=== PATIENT | male | born 1940 | race Caucasian/White ===

== ENCOUNTER → 2016-04-17 | Outpatient (CLI) | payer MEDICARE, OTHER ==
[2016-04-17 13:55] LABS: BUN/Creatinine Ratio 20.3; Calcium 10.1 mg/dL (8.5-10.1); Potassium 5.1 mmol/L (3.5-5.1)
== END | disposition home or self-care (01) ==
LOC: LAB 09:39
PROVIDERS: ATTEND Internal Medicine Cardiovascular Disease
DX: I10 Essential (primary) hypertension (principal); E11.9 Type 2 diabetes mellitus without complications
CPT/HCPCS: 36415; 80048; 83036

== ENCOUNTER → 2016-04-24 | Outpatient (CLI) | payer MEDICARE, OTHER | END | disposition home or self-care (01) | LOC: Rad HDHVI 11:06 | PROVIDERS: ATTEND Internal Medicine Cardiovascular Disease | DX: I10 Essential (primary) hypertension (principal); E78.5 Hyperlipidemia, unspecified; I25.10 Atherosclerotic heart disease of native coronary artery without angina pectoris | CPT/HCPCS: 93306 ==

== ENCOUNTER → 2016-06-22 | Outpatient (CLI) | payer MEDICARE, OTHER ==
[~2016-06-22] VITALS: Ht 170.2 cm; Wt 72.6 kg
== END | disposition home or self-care (01) ==
LOC: Rad HDHVI 09:03
PROVIDERS: ATTEND Internal Medicine Cardiovascular Disease
DX: R07.89 Other chest pain (principal); I10 Essential (primary) hypertension; I49.5 Sick sinus syndrome; I25.10 Atherosclerotic heart disease of native coronary artery without angina pectoris; E78.00 Pure hypercholesterolemia, unspecified; Z95.0 Presence of cardiac pacemaker
CPT/HCPCS: 78452; 93017; 96374; A9500

== ENCOUNTER → 2016-06-25 | Outpatient (CLI) | payer MEDICARE, OTHER | END | disposition home or self-care (01) | LOC: Rad HDHVI 09:28 | PROVIDERS: ATTEND Internal Medicine Cardiovascular Disease | DX: J32.9 Chronic sinusitis, unspecified (principal) | CPT/HCPCS: 70220 ==

== ENCOUNTER → 2016-09-17 | Outpatient (CLI) | payer MEDICARE, OTHER ==
[2016-09-17 09:15] VITALS: BP 96/50
[2016-09-17 09:40] VITALS: BP 95/50
[2016-09-17 12:47] LABS: Basophils # (auto) 0 uL; Basophils % (auto) 0.4 % (0.0-2.0); Eosinophils # (auto) 0.1 uL; Eosinophils % (auto) 1.6 % (0.0-7.0); Hematocrit 37.5 % (41.0-53.0); Hemoglobin 12.7 g/dL (13.5-17.5); Lymphocytes # (auto) 2.1 uL; Lymphocytes % (auto) 22.9 % (10.0-50.0); Mean Corpuscular Hemoglobin 29.7 pg (28.0-32.0); Mean Corpuscular Hgb Conc. 33.8 g/dL (32.0-36.0); Mean Corpuscular Volume 87.8 fL (80.0-100.0); Mean Platelet Volume 6.9 fL (7.4-10.4); Monocytes # (auto) 0.5 uL; Monocytes % (auto) 4.9 % (0.0-12.0); Neutrophils # (auto) 6.4 uL; Neutrophils % (auto) 70.2 % (37.0-80.0); Platelet Count (auto) 246 10^3/uL (140-450); White Blood Cell 9.2 10^3/uL (4.4-10.8)
[2016-09-17 12:53] LABS: INR 1.01 (0.9-1.15); Partial Thromboplastin Time 27.3 sec (22.64-33.71)
[2016-09-17 13:21] LABS: BUN/Creatinine Ratio 21.7; Calcium 9.1 mg/dL (8.5-10.1)
== END | disposition home or self-care (01) ==
LOC: Rad HDHVI 09:01
PROVIDERS: ATTEND Internal Medicine Cardiovascular Disease
DX: Z01.812 Encounter for preprocedural laboratory examination (principal); M47.814 Spondylosis without myelopathy or radiculopathy, thoracic region; I11.0 Hypertensive heart disease with heart failure; I50.9 Heart failure, unspecified; I25.10 Atherosclerotic heart disease of native coronary artery without angina pectoris; E78.00 Pure hypercholesterolemia, unspecified; D64.9 Anemia, unspecified; R79.1 Abnormal coagulation profile; R07.9 Chest pain, unspecified
CPT/HCPCS: 36415; 71020; 80048; 85025; 85610; 85730; 93005; G0463

== ENCOUNTER → 2016-09-28 | Outpatient (CLI) | payer MEDICARE, OTHER ==
[~2016-09-28] MED LIST: CANA300T PO; CHOL20009 PO; CLOP75TA28 PO; GLIM2TAB33 PO; LINA5TAB PO; LIRA18IN2 SUBCUT; OMEG600C2 PO; PREG75CA PO; ROSU20TA14 PO; SODIUM CHLORIDE 0.9% 500 ML IV ONE; [UNRECOGNIZED DRUG - CODE] PO
[2016-09-28 10:35] VITALS: BP 82/46
[2016-09-28 11:30] VITALS: BP 106/57
[2016-09-28 11:45] VITALS: BP 103/57
[2016-09-28 12:30] VITALS: BP 112/58
[2016-09-28 13:05] VITALS: BP 107/60
== END | disposition home or self-care (01) ==
LOC: CHF HDHVI 10:14
PROVIDERS: ATTEND Internal Medicine Cardiovascular Disease
DX: E86.0 Dehydration (principal); R11.2 Nausea with vomiting, unspecified; Z95.828 Presence of other vascular implants and grafts
CPT/HCPCS: 96360; 96361; G0463

== ENCOUNTER → 2016-10-31 | Outpatient (CLI) | payer MEDICARE, OTHER ==
[~2016-10-31] MED LIST changes: -SODIUM CHLORIDE 0.9% 500 ML IV ONE
[2016-10-31 12:58] LABS: Anion Gap 9 (5-15); BUN/Creatinine Ratio 36.4; Blood Urea Nitrogen 56 mg/dL (7-18); Calcium 9.7 mg/dL (8.5-10.1); Carbon Dioxide 20 mmol/L (21-32); Chloride 108 mmol/L (98-107); Cholesterol 130 mg/dL (< 200); GFR African American 56 mL/min; GFR Non-African American 47 mL/min; Glucose 187 mg/dL (74-106); HDL Cholesterol 31 mg/dL (40-59); Magnesium 3.1 mg/dL (1.6-2.6); Sodium 137 mmol/L (136-145); Triglycerides 451 mg/dL (< 150)
[2016-10-31 15:29] LABS: Potassium 5.8 mmol/L (3.5-5.1)
== END | disposition home or self-care (01) ==
LOC: LAB 09:59
PROVIDERS: ATTEND Internal Medicine Cardiovascular Disease
DX: E78.00 Pure hypercholesterolemia, unspecified (principal); I10 Essential (primary) hypertension; E11.9 Type 2 diabetes mellitus without complications; E83.42 Hypomagnesemia
CPT/HCPCS: 36415; 80048; 80061; 83036; 83735

== ENCOUNTER → 2016-11-02 | Outpatient (CLI) | payer MEDICARE, OTHER ==
[~2016-11-02] MED LIST changes: +SODIUM POLYSTYRENE SULF 15GM/60ML SUSP ONE; +SODIUM POLYSTYRENE SULF 15GM/60ML SUSP PO ONE
[2016-11-02 09:40] VITALS: BP 115/58
[2016-11-02 10:10] VITALS: BP 111/55
[2016-11-02 10:35] LABS: BUN/Creatinine Ratio 32.5; Calcium 9.2 mg/dL (8.5-10.1); Magnesium 2.5 mg/dL (1.6-2.6); Potassium 4.5 mmol/L (3.5-5.1)
== END | disposition home or self-care (01) ==
LOC: CHF HDHVI 09:45
PROVIDERS: ATTEND Internal Medicine Cardiovascular Disease
DX: I73.9 Peripheral vascular disease, unspecified (principal); I10 Essential (primary) hypertension; E11.9 Type 2 diabetes mellitus without complications; E87.5 Hyperkalemia; E78.5 Hyperlipidemia, unspecified; E83.41 Hypermagnesemia
CPT/HCPCS: 36415; 80048; 83735; G0463

== ENCOUNTER → 2016-11-05 | Outpatient (CLI) | payer MEDICARE, OTHER ==
[~2016-11-05] MED LIST changes: +CYANOCOBALAMIN (B-12) 1000 MCG/1 ML VIAL IM ONE; +CYANOCOBALAMIN (B-12) 1000 MCG/1 ML VIAL ONE; -SODIUM POLYSTYRENE SULF 15GM/60ML SUSP ONE; -SODIUM POLYSTYRENE SULF 15GM/60ML SUSP PO ONE
[2016-11-05 12:00] VITALS: BP 138/73
[2016-11-05 12:30] VITALS: BP 131/79
[2016-11-05 15:16] LABS: Magnesium 2.4 mg/dL (1.6-2.6); Potassium 4.6 mmol/L (3.5-5.1)
== END | disposition home or self-care (01) ==
LOC: CHF HDHVI 11:37
PROVIDERS: ATTEND Internal Medicine Cardiovascular Disease
DX: I25.10 Atherosclerotic heart disease of native coronary artery without angina pectoris (principal); R94.4 Abnormal results of kidney function studies; E87.6 Hypokalemia; E83.42 Hypomagnesemia; R53.83 Other fatigue
CPT/HCPCS: 36415; 82565; 83735; 84132; 84520; J3420

== ENCOUNTER → 2016-11-09 | Outpatient (CLI) | payer MEDICARE, OTHER ==
[~2016-11-09] MED LIST changes: -CYANOCOBALAMIN (B-12) 1000 MCG/1 ML VIAL IM ONE; -CYANOCOBALAMIN (B-12) 1000 MCG/1 ML VIAL ONE
[2016-11-09 13:02] LABS: Magnesium 2.5 mg/dL (1.6-2.6); Potassium 4.5 mmol/L (3.5-5.1)
== END | disposition home or self-care (01) ==
LOC: LAB 11:10
PROVIDERS: ATTEND Internal Medicine Cardiovascular Disease
DX: I10 Essential (primary) hypertension (principal); E83.42 Hypomagnesemia
CPT/HCPCS: 36415; 80048; 83735

== ENCOUNTER → 2017-01-01 | Outpatient (CLI) | payer MEDICARE, OTHER ==
[~2017-01-01] MED LIST changes: +METF-370 PO
[2017-01-01 09:00] VITALS: BP 99/55
[2017-01-01 12:23] LABS: Basophils # (auto) 0.1 uL; Basophils % (auto) 1.2 % (0.0-2.0); Eosinophils # (auto) 0.1 uL; Hematocrit 41.5 % (41.0-53.0); Hemoglobin 13.9 g/dL (13.5-17.5); Lymphocytes # (auto) 2.4 uL; Lymphocytes % (auto) 35.4 % (10.0-50.0); Mean Corpuscular Hemoglobin 29.4 pg (28.0-32.0); Mean Corpuscular Hgb Conc. 33.6 g/dL (32.0-36.0); Mean Corpuscular Volume 87.5 fL (80.0-100.0); Mean Platelet Volume 6.7 fL (6.9-10.8); Monocytes # (auto) 0.7 uL; Monocytes % (auto) 10.8 % (0.0-12.0); Neutrophils # (auto) 3.4 uL; Neutrophils % (auto) 50.6 % (37.0-80.0); Nucleated Red Blood Cells % 0.1 %; Platelet Count (auto) 200 10^3/uL (140-450); Red Cell Distribution Width 14.5 % (11.8-14.3); White Blood Cell 6.6 10^3/uL (4.4-10.8)
[2017-01-01 12:35] LABS: Prothrombin Time 10.9 sec (9.37-12.3)
[2017-01-01 12:38] LABS: BUN/Creatinine Ratio 25.2; Calcium 9.3 mg/dL (8.5-10.1); Potassium 4.2 mmol/L (3.5-5.1)
== END | disposition home or self-care (01) ==
LOC: Rad HDHVI 09:04
PROVIDERS: ATTEND Internal Medicine Cardiovascular Disease
DX: Z01.818 Encounter for other preprocedural examination (principal); I70.0 Atherosclerosis of aorta; I51.7 Cardiomegaly; I10 Essential (primary) hypertension; D64.9 Anemia, unspecified; R79.1 Abnormal coagulation profile
CPT/HCPCS: 36415; 71020; 80048; 85025; 85610; 85730; 93005; G0463

== ENCOUNTER 2017-01-03 09:09 | Inpatient (IN) | payer MEDICARE, OTHER ==
[~2017-01-03] VITALS: Ht 170.2 cm; Wt 76.0 kg
[2017-01-03] MEDS ORDERED: ceFAZolin 1GM/50ML D5W 50 ML IV ONE ×2 (09:23→09:30)
[2017-01-03] MEDS ORDERED: VANCOMYCIN 1GM/250ML D5W 250 ML IV ONE ×2 (09:23→09:30)
[2017-01-03] MEDS ORDERED: VANCOMYCIN HCL 1000 MG VL ONE (09:23)
[2017-01-03] MEDS ORDERED: VANCOMYCIN HCL 1000 MG VL IR ONE (09:30)
[2017-01-03] MEDS ORDERED: LIDOCAINE 2%HCL (LOCAL ANESTH.) INJ 20ML MDV ONE (10:21)
[2017-01-03] MEDS ORDERED: MIDAZOLAM HCL 1MG/1ML-2 ML VIAL ONE (10:27)
[2017-01-03] MEDS ORDERED: fentaNYL CITRATE 100 MCG/2 ML VL ONE (10:27)
[2017-01-03] MEDS ORDERED: NITROGLYCERIN 0.4 MG SL TAB SL PRN (12:15)
[2017-01-03] MEDS ORDERED: ACETAMINOPHEN 325 MG TAB PO PRN (12:15)
[2017-01-03] MEDS ORDERED: HYDROcodone-ACET 5/325MG TAB PO PRN (12:15)
[2017-01-03] MEDS ORDERED: MORPHINE SULF INJ 2 MG/ML SYRINGE 1ML IV PRN (12:15)
[2017-01-03 13:20] VITALS: BP 128/70
[2017-01-03] MEDS: ACCU-CHEK COMFORT CURVE STRIP VI SCH ×2 (16:54→22:14)
[2017-01-03 22:00] VITALS: BP 122/58
[2017-01-03] MEDS ORDERED: ATORVASTATIN 20 MG TAB PO SCH (22:00)
[2017-01-03] MEDS: VANCOMYCIN 1GM/250ML D5W 250 ML IV SCH (22:20)
[2017-01-03] MEDS: metFORMIN HYDROCHLORIDE 500 MG TAB PO SCH (22:21)
[2017-01-03] MEDS: PREGABALIN CAPSULE 75 MG CAP PO SCH (22:22)
[2017-01-04 05:00] VITALS: BP 127/55
[2017-01-04] MEDS: ACCU-CHEK COMFORT CURVE STRIP VI SCH ×2 (06:36→10:59)
[2017-01-04 07:30] VITALS: BP 109/59
[2017-01-04 08:00] VITALS: BP 109/59
[2017-01-04] MEDS: VANCOMYCIN 1GM/250ML D5W 250 ML IV SCH (09:51)
[2017-01-04] MEDS: PREGABALIN CAPSULE 75 MG CAP PO SCH (09:52)
[2017-01-04] MEDS: LOSARTAN POTASSIUM 50 MG TAB PO SCH ×3 (09:52→10:12)
[2017-01-04] MEDS: metFORMIN HYDROCHLORIDE 500 MG TAB PO SCH (09:52)
[2017-01-04] MEDS ORDERED: [UNRECOGNIZED DRUG - OTHER] PO SCH (10:00)
[2017-01-04] MEDS ORDERED: GLIMEPIRIDE 2 MG TAB PO SCH (10:00)
[2017-01-04 12:40] VITALS: BP 128/58
[2017-01-04 15:23] VITALS: BP 109/59
[2017-01-04 15:53] VITALS: BP 124/69
== END 2017-01-04 17:31 | disposition home or self-care (01) | DRG 244 ==
LOC: CATH 09:09 → TELE-E-ADS 09:10 → TELE-CENTR 16:34
PROVIDERS: ADMIT Internal Medicine Cardiovascular Disease; ATTEND Internal Medicine Cardiovascular Disease
PROC: 0JPT0PZ Removal of Cardiac Rhythm Related Device from Trunk Subcutaneous Tissue and Fascia, Open Approach (ICD-10-PCS; principal; 2017-01-03)
PROC: 0JH606Z Insertion of Pacemaker, Dual Chamber into Chest Subcutaneous Tissue and Fascia, Open Approach (ICD-10-PCS; 2017-01-03)
PROC: 02HK3JZ Insertion of Pacemaker Lead into Right Ventricle, Percutaneous Approach (ICD-10-PCS; 2017-01-03)
PROC: 02PA3MZ Removal of Cardiac Lead from Heart, Percutaneous Approach (ICD-10-PCS; 2017-01-03)
DX: I44.2 Atrioventricular block, complete (principal)
CPT/HCPCS: 33207; 33233; 33234; 36415; 71010; 71020; 80048; 82962; 85025; 85610; 85730; 93005; 99152; 99153; C1785; G0463; J0690; J2250

== ENCOUNTER → 2017-01-14 | Outpatient (CLI) | payer MEDICARE, OTHER ==
[2017-01-14 14:25] LABS: BUN/Creatinine Ratio 18.2; Potassium 4.1 mmol/L (3.5-5.1)
== END | disposition home or self-care (01) ==
LOC: LAB 09:04
PROVIDERS: ATTEND Internal Medicine Cardiovascular Disease
DX: I10 Essential (primary) hypertension (principal); E11.9 Type 2 diabetes mellitus without complications
CPT/HCPCS: 36415; 80048; 83036

== ENCOUNTER → 2017-01-22 | Outpatient (CLI) | payer MEDICARE, OTHER ==
[~2017-01-22] MED LIST changes: +VANCOMYCIN 1GM/250ML 250 ML IV ONE; +cefTRIAXone 1GM/50ML D5W 0 ML IV ONE; +cefTRIAXone 1GM/50ML D5W 50 ML IV ONE
[2017-01-22 16:14] VITALS: BP 122/69
== END | disposition home or self-care (01) ==
LOC: CHF HDHVI 09:56
PROVIDERS: ATTEND Internal Medicine Cardiovascular Disease
DX: I50.9 Heart failure, unspecified (principal)
CPT/HCPCS: 96365; 96366; G0463; J0696

== ENCOUNTER → 2017-01-23 | Outpatient (CLI) | payer MEDICARE, OTHER ==
[~2017-01-23] VITALS: Ht 30.5 cm; Wt 0.5 kg
[~2017-01-23] MED LIST changes: +ONDANSETRON HCL 4 MG/2 ML VIAL IV ONE; +ONDANSETRON HCL 4 MG/2 ML VIAL ONE; -cefTRIAXone 1GM/50ML D5W 0 ML IV ONE
[2017-01-23 13:46] VITALS: BP 94/63
[2017-01-23 13:46] LABS: BUN/Creatinine Ratio 26.2; Calcium 9.8 mg/dL (8.5-10.1); Magnesium 2.2 mg/dL (1.6-2.6); Potassium 4.2 mmol/L (3.5-5.1)
[2017-01-23 13:55] LABS: Basophils # (auto) 0.1 uL; Basophils % (auto) 0.7 % (0.0-2.0); Eosinophils # (auto) 0.2 uL; Eosinophils % (auto) 1.9 % (0.0-7.0); Hematocrit 39.7 % (41.0-53.0); Hemoglobin 13.3 g/dL (13.5-17.5); Lymphocytes # (auto) 1.5 uL; Lymphocytes % (auto) 16.7 % (10.0-50.0); Mean Corpuscular Hemoglobin 28.8 pg (28.0-32.0); Mean Corpuscular Hgb Conc. 33.5 g/dL (32.0-36.0); Mean Corpuscular Volume 85.8 fL (80.0-100.0); Mean Platelet Volume 6.7 fL (6.9-10.8); Monocytes # (auto) 0.8 uL; Monocytes % (auto) 8.5 % (0.0-12.0); Neutrophils # (auto) 6.5 uL; Neutrophils % (auto) 72.2 % (37.0-80.0); Nucleated Red Blood Cells % 0.1 %; Platelet Count (auto) 212 10^3/uL (140-450); Red Cell Distribution Width 14.1 % (11.8-14.3); White Blood Cell 9.1 10^3/uL (4.4-10.8)
[2017-01-23 14:13] LABS: INR 1.03 (0.9-1.15); Partial Thromboplastin Time 26.5 sec (22.64-33.71); Prothrombin Time 11.2 sec (9.37-12.3)
[2017-01-24 08:06] LABS: PSA Free 1.58 ng/mL; Prostate Specific Antigen 5.4 ng/mL (0.0-4.0)
== END | disposition home or self-care (01) ==
LOC: CHF HDHVI 10:15
PROVIDERS: ATTEND Internal Medicine Cardiovascular Disease
DX: I10 Essential (primary) hypertension (principal); E83.42 Hypomagnesemia; R97.20 Elevated prostate specific antigen [PSA]; D64.9 Anemia, unspecified
CPT/HCPCS: 36415; 80048; 83735; 84153; 84154; 85025; 85610; 85730; 96365; 96367; 96375; G0463; J0696; J2405

== ENCOUNTER → 2017-02-06 | Outpatient (CLI) | payer MEDICARE, OTHER ==
[~2017-02-06] MED LIST changes: -ONDANSETRON HCL 4 MG/2 ML VIAL IV ONE; -ONDANSETRON HCL 4 MG/2 ML VIAL ONE; -VANCOMYCIN 1GM/250ML 250 ML IV ONE; -cefTRIAXone 1GM/50ML D5W 50 ML IV ONE
== END | disposition home or self-care (01) ==
LOC: Rad HDHVI 15:01
PROVIDERS: ATTEND Internal Medicine Cardiovascular Disease
DX: I35.0 Nonrheumatic aortic (valve) stenosis (principal)
CPT/HCPCS: 93306

== ENCOUNTER → 2017-04-17 | Outpatient (CLI) | payer MEDICARE, OTHER ==
[2017-04-17 12:11] LABS: Basophils # (auto) 0.1 uL; Eosinophils # (auto) 0.2 uL; Hematocrit 42.8 % (41.0-53.0); Hemoglobin 14.1 g/dL (13.5-17.5); Lymphocytes # (auto) 2.6 uL; Lymphocytes % (auto) 32.7 % (10.0-50.0); Mean Corpuscular Hemoglobin 28.3 pg (28.0-32.0); Mean Corpuscular Hgb Conc. 32.8 g/dL (32.0-36.0); Mean Corpuscular Volume 86.1 fL (80.0-100.0); Monocytes # (auto) 0.8 uL; Monocytes % (auto) 10.4 % (0.0-12.0); Neutrophils # (auto) 4.2 uL; Neutrophils % (auto) 53.9 % (37.0-80.0); Platelet Count (auto) 206 10^3/uL (140-450); Red Blood Cells 4.97 10^6/uL (4.5-5.90); Red Cell Distribution Width 14.6 % (11.8-14.3); White Blood Cell 7.8 10^3/uL (4.4-10.8)
[2017-04-17 12:23] LABS: Urine Blood Negative /uL (Negative)
[2017-04-17 13:31] LABS: Alkaline Phosphatase 77 U/L (45-117); Anion Gap 12 (5-15); BUN/Creatinine Ratio 25.6; Blood Urea Nitrogen 34 mg/dL (7-18); Carbon Dioxide 21 mmol/L (21-32); Chloride 108 mmol/L (98-107); GFR African American 67 mL/min; GFR Non-African American 55 mL/min; Glucose 177 mg/dL (74-106); Potassium 4.4 mmol/L (3.5-5.1); Sodium 141 mmol/L (136-145)
[2017-04-17 13:32] LABS: Alanine Aminotransferase 26 U/L (16-61); Aspartate Aminotransferase 14 U/L (15-37); Bilirubin, Direct 0.1 mg/dL (0-0.2); Bilirubin, Total 0.5 mg/dL (0.2-1.0); Calcium 9.4 mg/dL (8.5-10.1); Cholesterol 133 mg/dL (< 200); HDL Cholesterol 35 mg/dL (40-59); Total Protein 7.7 g/dL (6.4-8.2); Triglycerides 470 mg/dL (< 150)
== END | disposition home or self-care (01) ==
LOC: LAB 10:26
PROVIDERS: ATTEND Internal Medicine Cardiovascular Disease
DX: E78.00 Pure hypercholesterolemia, unspecified (principal); D64.9 Anemia, unspecified; I10 Essential (primary) hypertension; E11.9 Type 2 diabetes mellitus without complications; E03.9 Hypothyroidism, unspecified; R97.20 Elevated prostate specific antigen [PSA]; R53.81 Other malaise; N39.0 Urinary tract infection, site not specified; K74.1 Hepatic sclerosis
CPT/HCPCS: 36415; 80048; 80061; 80076; 81003; 83036; 84153; 84403; 84443; 85025

== ENCOUNTER → 2017-04-18 | Outpatient (CLI) | payer MEDICARE, OTHER | END | disposition home or self-care (01) | LOC: LAB 15:25 | PROVIDERS: ATTEND Internal Medicine Cardiovascular Disease | DX: E55.9 Vitamin D deficiency, unspecified (principal); R97.20 Elevated prostate specific antigen [PSA] | CPT/HCPCS: 82306; 84154 ==

== ENCOUNTER → 2017-05-22 | Outpatient (CLI) | payer MEDICARE, OTHER ==
[~2017-05-22] MED LIST changes: +IOHEXOL 350 MG/ML 100ML IJ ONE; +SODIUM BICARBONATE 8.4 % INJ 50ML VIAL IV ONE
[2017-05-22 12:25] VITALS: BP 105/62
[2017-05-22] MEDS: SODIUM CHLORIDE 0.9% 1,000 ML IV SCH ×2 (12:30→12:45)
[2017-05-22 13:49] LABS: Basophils # (auto) 0.1 uL; Basophils % (auto) 1.2 % (0.0-2.0); Eosinophils # (auto) 0.1 uL; Eosinophils % (auto) 0.9 % (0.0-7.0); Hematocrit 34.6 % (41.0-53.0); Hemoglobin 11.5 g/dL (13.5-17.5); Lymphocytes # (auto) 1.8 uL; Lymphocytes % (auto) 26.6 % (10.0-50.0); Mean Corpuscular Hemoglobin 28.5 pg (28.0-32.0); Mean Corpuscular Hgb Conc. 33.3 g/dL (32.0-36.0); Mean Corpuscular Volume 85.7 fL (80.0-100.0); Monocytes # (auto) 0.6 uL; Monocytes % (auto) 8.5 % (0.0-12.0); Neutrophils # (auto) 4.2 uL; Neutrophils % (auto) 62.8 % (37.0-80.0); Platelet Count (auto) 189 10^3/uL (140-450); Red Blood Cells 4.03 10^6/uL (4.5-5.90); Red Cell Distribution Width 14.8 % (11.8-14.3); White Blood Cell 6.7 10^3/uL (4.4-10.8)
[2017-05-22 14:03] LABS: BUN/Creatinine Ratio 20.3; Calcium 8.9 mg/dL (8.5-10.1); Magnesium 2.1 mg/dL (1.6-2.6); Potassium 4.3 mmol/L (3.5-5.1)
[2017-05-22 15:15] VITALS: BP 129/66
== END | disposition home or self-care (01) ==
LOC: Rad HDHVI 12:19
PROVIDERS: ATTEND Internal Medicine Cardiovascular Disease
DX: R07.89 Other chest pain (principal); E83.42 Hypomagnesemia; D64.9 Anemia, unspecified; I10 Essential (primary) hypertension; N28.1 Cyst of kidney, acquired; E11.9 Type 2 diabetes mellitus without complications; M48.04 Spinal stenosis, thoracic region; I70.0 Atherosclerosis of aorta; D71 Functional disorders of polymorphonuclear neutrophils; Z95.0 Presence of cardiac pacemaker
CPT/HCPCS: 36415; 71260; 80048; 82565; 83735; 85025; 96365; 96366; 96375; G0463; Q9967

== ENCOUNTER → 2017-06-11 | Outpatient (CLI) | payer MEDICARE, OTHER ==
[~2017-06-11] MED LIST changes: -IOHEXOL 350 MG/ML 100ML IJ ONE; -SODIUM BICARBONATE 8.4 % INJ 50ML VIAL IV ONE
== END | disposition home or self-care (01) ==
LOC: LAB 09:37
PROVIDERS: ATTEND Internal Medicine Cardiovascular Disease
DX: C61 Malignant neoplasm of prostate (principal)
CPT/HCPCS: 84153; 84154

== ENCOUNTER 2017-08-26 16:14 | Inpatient (IN) | payer MEDICARE, OTHER ==
[~2017-08-26] VITALS: Ht 170.2 cm; Wt 88.7 kg
[~2017-08-26 16:14] MED LIST changes: -ASPI-231 PO; -INSLANTI SC; -INSLISPI SC; -KETOROLAC TROMETH 30 MG/ML 1ML VIAL IV ONE; -KETOROLAC TROMETH 60MG/2ML VIAL IM ONE; -VANCOMYCIN 1GM/250ML 250 ML IV ONE; -cefTRIAXone 1GM/10ml IVPUSH 10 ML IV ONE
[2017-08-26 17:54] VITALS: BP 122/65
[2017-08-26 18:10] VITALS: BP 123/54
[2017-08-26] MEDS ORDERED: MORPHINE SULFATE 4 MG/ML SYR/VIAL IV PRN (18:30)
[2017-08-26] MEDS ORDERED: NITROGLYCERIN 0.4 MG SL TAB SL PRN (18:30)
[2017-08-26] MEDS ORDERED: ASPI-231 PO (18:33)
[2017-08-26] MEDS ORDERED: INSLANTI SC (18:33)
[2017-08-26] MEDS ORDERED: INSLISPI SC (18:33)
[2017-08-26] MEDS ORDERED: VANCOMYCIN PER PHARMACY 0 MG IV SCH (18:45)
[2017-08-26] MEDS ORDERED: DEXTROSE (50%) 50ML SYRG IV PRN (19:00)
[2017-08-26] MEDS ORDERED: FUROSEMIDE 20 MG/2 ML VIAL IV ONE (20:00)
[2017-08-26] MEDS ORDERED: ONDANSETRON HCL 4 MG/2 ML VIAL ONE (22:24)
[2017-08-26] MEDS: InsuLIN REG 1unit/0.01ml Soln (100units/ml) SC SCH (22:29)
[2017-08-26] MEDS: ATORVASTATIN 20 MG TAB PO SCH (22:29)
[2017-08-26] MEDS: INSULIN LANTUS (GLARGINE) 1 /0.01ml (100units/ml) SC SCH (22:29)
[2017-08-26] MEDS: ONDANSETRON HCL 4 MG/2 ML VIAL IV PRN (22:30)
[2017-08-26] MEDS: ACCU-CHEK COMFORT CURVE STRIP VI SCH (22:30)
[2017-08-26] MEDS: HYDROcodone-ACET 10/325MG TAB PO PRN (22:30)
[2017-08-26 23:54] VITALS: BP 126/53
[2017-08-27] VITALS (11 sets, daily range): BP systolic 110–140; BP diastolic 42–77
[2017-08-27] MEDS: VANCOMYCIN 1GM/250ML 250 ML IV SCH ×2 (00:21→23:50)
[2017-08-27] MEDS ORDERED: InsuLIN REG 1unit/0.01ml Soln (100units/ml) IV ONE ×2 (02:20→02:30)
[2017-08-27 06:04] LABS: Basophils # (auto) 0 uL; Eosinophils # (auto) 0.1 uL; Monocytes # (auto) 0.1 uL; Neutrophils # (auto) 2.5 uL; Red Blood Cells 2.94 10^6/uL (4.5-5.90); White Blood Cell 5.7 10^3/uL (4.4-10.8)
[2017-08-27 06:06] LABS: Basophils % (auto) 0.2 % (0.0-2.0); Eosinophils % (auto) 1.4 % (0.0-7.0); Hemoglobin 8.2 g/dL (13.5-17.5); Mean Corpuscular Hemoglobin 27.8 pg (28.0-32.0); Mean Corpuscular Hgb Conc. 32.7 g/dL (32.0-36.0); Mean Corpuscular Volume 84.9 fL (80.0-100.0); Neutrophils % (auto) 44.4 % (37.0-80.0); Nucleated Red Blood Cells % 0.1 %; Platelet Count (auto) 104 10^3/uL (140-450)
[2017-08-27 06:14] LABS: Calcium 8.8 mg/dL (8.5-10.1); Potassium 3.9 mmol/L (3.5-5.1)
[2017-08-27] MEDS: InsuLIN REG 1unit/0.01ml Soln (100units/ml) SC SCH ×4 (06:27→23:22)
[2017-08-27] MEDS: ACCU-CHEK COMFORT CURVE STRIP VI SCH ×4 (06:29→23:21)
[2017-08-27] MEDS ORDERED: VANCOMYCIN 1GM/250ML 250 ML IV SCH (10:00)
[2017-08-27] MEDS ORDERED: ASPirin 81 mg TAB PO ONE (10:00)
[2017-08-27] MEDS: LOSARTAN POTASSIUM 50 MG TAB PO SCH (10:24)
[2017-08-27] MEDS: CLOPIDOGREL BISULFATE 75 MG TAB PO SCH (10:25)
[2017-08-27] MEDS: PREGABALIN CAPSULE 75 MG CAP PO SCH (10:26)
[2017-08-27] MEDS: cefTRIAXone 1GM/10ml IVPUSH 10 ML IV SCH (18:13)
[2017-08-27] MEDS: ATORVASTATIN 20 MG TAB PO SCH (23:20)
[2017-08-27] MEDS: HYDROcodone-ACET 10/325MG TAB PO PRN (23:20)
[2017-08-27] MEDS: INSULIN LANTUS (GLARGINE) 1 /0.01ml (100units/ml) SC SCH (23:21)
[2017-08-27] MEDS: ONDANSETRON HCL 4 MG/2 ML VIAL IV PRN (23:49)
[2017-08-28 00:37] VITALS: BP 135/62
[2017-08-28 05:53] VITALS: BP 127/90
[2017-08-28 06:33] LABS: Hematocrit 31.4 % (41.0-53.0); Hemoglobin 10.4 g/dL (13.5-17.5); Mean Corpuscular Hemoglobin 28.4 pg (28.0-32.0); Mean Corpuscular Hgb Conc. 33.2 g/dL (32.0-36.0); Mean Corpuscular Volume 85.6 fL (80.0-100.0); Platelet Count (auto) 85 10^3/uL (140-450); Red Blood Cells 3.66 10^6/uL (4.5-5.90); Red Cell Distribution Width 14.4 % (11.8-14.3); White Blood Cell 6.4 10^3/uL (4.4-10.8)
[2017-08-28] MEDS: InsuLIN REG 1unit/0.01ml Soln (100units/ml) SC SCH ×4 (06:34→21:59)
[2017-08-28] MEDS: ACCU-CHEK COMFORT CURVE STRIP VI SCH ×4 (06:34→21:59)
[2017-08-28 06:53] LABS: Band Neutrophils % (manual) 0; Basophils % (manual) 0 (0.0-2.0); Blast Cells 0; Eosinophils % (manual) 0 (0-7); Metamyelocytes % 0; Myelocytes % 0; Promyelocytes % 0; Reactive Lymphocytes 0
[2017-08-28 06:54] LABS: Potassium 4.3 mmol/L (3.5-5.1)
[2017-08-28 06:59] LABS: Albumin 2.6 g/dL (3.4-5.0); BUN/Creatinine Ratio 20.4; Calcium 8.9 mg/dL (8.5-10.1)
[2017-08-28 07:01] LABS: Bilirubin, Total 0.8 mg/dL (0.2-1.0); Total Protein 6.9 g/dL (6.4-8.2)
[2017-08-28] MEDS: HYDROcodone-ACET 10/325MG TAB PO PRN ×2 (08:01→21:58)
[2017-08-28] MEDS: ONDANSETRON HCL 4 MG/2 ML VIAL IV PRN ×2 (08:01→21:58)
[2017-08-28 09:00] VITALS: BP 143/63
[2017-08-28] MEDS: cefTRIAXone 1GM/10ml IVPUSH 10 ML IV SCH (09:25)
[2017-08-28] MEDS: PREGABALIN CAPSULE 75 MG CAP PO SCH (09:26)
[2017-08-28] MEDS: LOSARTAN POTASSIUM 50 MG TAB PO SCH (09:26)
[2017-08-28] MEDS: CLOPIDOGREL BISULFATE 75 MG TAB PO SCH (09:26)
[2017-08-28 13:52] LABS: Lymphocytes % (manual) 72 (10.0-50.0); Monocytes % (manual) 6 (0-12)
[2017-08-28 17:31] VITALS: BP 138/71
[2017-08-28 20:00] VITALS: BP 130/72
[2017-08-28] MEDS: ATORVASTATIN 20 MG TAB PO SCH (21:58)
[2017-08-28] MEDS: INSULIN LANTUS (GLARGINE) 1 /0.01ml (100units/ml) SC SCH (21:59)
[2017-08-28 22:00] VITALS: BP 130/72
[2017-08-28] MEDS: VANCOMYCIN 1,250 MG in D5W 5% 250 ML IV SCH (23:28)
[2017-08-29 05:00] VITALS: BP 127/66
[2017-08-29] MEDS: InsuLIN REG 1unit/0.01ml Soln (100units/ml) SC SCH ×4 (06:17→21:32)
[2017-08-29] MEDS: ACCU-CHEK COMFORT CURVE STRIP VI SCH ×4 (06:17→21:23)
[2017-08-29 09:00] VITALS: BP 122/68
[2017-08-29] MEDS: cefTRIAXone 1GM/10ml IVPUSH 10 ML IV SCH (09:02)
[2017-08-29] MEDS: CLOPIDOGREL BISULFATE 75 MG TAB PO SCH (09:03)
[2017-08-29] MEDS: PREGABALIN CAPSULE 75 MG CAP PO SCH (09:03)
[2017-08-29] MEDS: LOSARTAN POTASSIUM 50 MG TAB PO SCH (09:03)
[2017-08-29 13:00] VITALS: BP 130/68
[2017-08-29] MEDS: HYDROcodone-ACET 10/325MG TAB PO PRN (16:27)
[2017-08-29] MEDS: ONDANSETRON HCL 4 MG/2 ML VIAL IV PRN (16:27)
[2017-08-29 17:24] VITALS: BP 122/62
[2017-08-29 20:00] VITALS: BP 121/55
[2017-08-29] MEDS: ATORVASTATIN 20 MG TAB PO SCH (21:22)
[2017-08-29] MEDS: INSULIN LANTUS (GLARGINE) 1 /0.01ml (100units/ml) SC SCH (21:32)
[2017-08-29 22:11] VITALS: BP 121/55
[2017-08-29] MEDS: VANCOMYCIN 1,250 MG in D5W 5% 250 ML IV SCH (23:26)
[2017-08-30] MEDS: ONDANSETRON HCL 4 MG/2 ML VIAL IV PRN ×3 (00:46→21:57)
[2017-08-30] MEDS: HYDROcodone-ACET 10/325MG TAB PO PRN ×3 (01:34→22:34)
[2017-08-30 05:07] VITALS: BP 123/60
[2017-08-30] MEDS: InsuLIN REG 1unit/0.01ml Soln (100units/ml) SC SCH ×4 (06:18→21:56)
[2017-08-30] MEDS: ACCU-CHEK COMFORT CURVE STRIP VI SCH ×4 (06:18→21:56)
[2017-08-30 07:31] VITALS: BP 126/74
[2017-08-30] MEDS: cefTRIAXone 1GM/10ml IVPUSH 10 ML IV SCH (09:27)
[2017-08-30] MEDS: PREGABALIN CAPSULE 75 MG CAP PO SCH (09:28)
[2017-08-30] MEDS: CLOPIDOGREL BISULFATE 75 MG TAB PO SCH (09:28)
[2017-08-30] MEDS: LOSARTAN POTASSIUM 50 MG TAB PO SCH (09:28)
[2017-08-30] MEDS: VANCOMYCIN 1,500 MG in D5W 5% 250 ML IV SCH (11:00)
[2017-08-30 11:46] VITALS: BP 146/74
[2017-08-30 14:50] LABS: Albumin 2.4 g/dL (3.4-5.0); BUN/Creatinine Ratio 21.1; Calcium 8.9 mg/dL (8.5-10.1); Potassium 5.1 mmol/L (3.5-5.1)
[2017-08-30 15:00] LABS: Bilirubin, Total 0.5 mg/dL (0.2-1.0); Total Protein 6.1 g/dL (6.4-8.2)
[2017-08-30 16:32] VITALS: BP 106/60
[2017-08-30 20:21] VITALS: BP 108/56
[2017-08-30 21:56] VITALS: BP 108/56
[2017-08-30] MEDS: INSULIN LANTUS (GLARGINE) 1 /0.01ml (100units/ml) SC SCH (21:56)
[2017-08-30] MEDS: ATORVASTATIN 20 MG TAB PO SCH (21:57)
[2017-08-31] VITALS (7 sets, daily range): BP systolic 104–139; BP diastolic 54–71
[2017-08-31] MEDS: ACCU-CHEK COMFORT CURVE STRIP VI SCH ×4 (07:00→21:40)
[2017-08-31] MEDS: InsuLIN REG 1unit/0.01ml Soln (100units/ml) SC SCH ×4 (07:00→21:42)
[2017-08-31 07:30] LABS: Albumin 2.6 g/dL (3.4-5.0); Potassium 4.7 mmol/L (3.5-5.1)
[2017-08-31 07:45] LABS: Bilirubin, Total 0.3 mg/dL (0.2-1.0); Total Protein 6.5 g/dL (6.4-8.2)
[2017-08-31 08:00] LABS: BUN/Creatinine Ratio 26.2
[2017-08-31] MEDS: ONDANSETRON HCL 4 MG/2 ML VIAL IV PRN ×2 (09:12→23:05)
[2017-08-31] MEDS: cefTRIAXone 1GM/10ml IVPUSH 10 ML IV SCH (09:12)
[2017-08-31] MEDS: PREGABALIN CAPSULE 75 MG CAP PO SCH (09:13)
[2017-08-31] MEDS: LOSARTAN POTASSIUM 50 MG TAB PO SCH (09:14)
[2017-08-31] MEDS: CLOPIDOGREL BISULFATE 75 MG TAB PO SCH (09:14)
[2017-08-31] MEDS: HYDROcodone-ACET 10/325MG TAB PO PRN ×2 (10:19→23:30)
[2017-08-31] MEDS: VANCOMYCIN 1,500 MG in D5W 5% 250 ML IV SCH (11:32)
[2017-08-31 13:36] LABS: Hematocrit 33.1 % (41.0-53.0); Hemoglobin 10.6 g/dL (13.5-17.5); Mean Corpuscular Hemoglobin 27.6 pg (28.0-32.0); Mean Corpuscular Hgb Conc. 32.2 g/dL (32.0-36.0); Mean Corpuscular Volume 85.7 fL (80.0-100.0); Platelet Count (auto) 132 10^3/uL (140-450); Red Blood Cells 3.86 10^6/uL (4.5-5.90); Red Cell Distribution Width 14.6 % (11.8-14.3); White Blood Cell 6.7 10^3/uL (4.4-10.8)
[2017-08-31 13:43] LABS: BUN/Creatinine Ratio 26.3; Potassium 4.4 mmol/L (3.5-5.1)
[2017-08-31 13:44] LABS: Calcium 8.6 mg/dL (8.5-10.1)
[2017-08-31 13:46] LABS: Band Neutrophils % (manual) 0; Basophils % (manual) 0 (0.0-2.0); Blast Cells 0; Eosinophils % (manual) 0 (0-7); Metamyelocytes % 0; Myelocytes % 0; Promyelocytes % 0; Reactive Lymphocytes 0
[2017-08-31 14:06] LABS: Lymphocytes % (manual) 73 (10.0-50.0); Monocytes % (manual) 6 (0-12)
[2017-08-31] MEDS: ATORVASTATIN 20 MG TAB PO SCH (21:42)
[2017-08-31] MEDS: INSULIN LANTUS (GLARGINE) 1 /0.01ml (100units/ml) SC SCH (21:42)
[2017-09-01 05:06] VITALS: BP 117/57
[2017-09-01] MEDS: ACCU-CHEK COMFORT CURVE STRIP VI SCH ×4 (06:50→21:25)
[2017-09-01] MEDS: InsuLIN REG 1unit/0.01ml Soln (100units/ml) SC SCH ×4 (06:58→21:26)
[2017-09-01 08:20] VITALS: BP 135/67
[2017-09-01] MEDS: CLOPIDOGREL BISULFATE 75 MG TAB PO SCH (08:55)
[2017-09-01] MEDS: LOSARTAN POTASSIUM 50 MG TAB PO SCH (08:55)
[2017-09-01] MEDS: PREGABALIN CAPSULE 75 MG CAP PO SCH (08:56)
[2017-09-01] MEDS: cefTRIAXone 1GM/10ml IVPUSH 10 ML IV SCH (08:57)
[2017-09-01 09:00] VITALS: BP 135/67
[2017-09-01] MEDS: ONDANSETRON HCL 4 MG/2 ML VIAL IV PRN ×2 (09:54→23:04)
[2017-09-01] MEDS: HYDROcodone-ACET 10/325MG TAB PO PRN ×2 (10:31→23:43)
[2017-09-01] MEDS: VANCOMYCIN 1,500 MG in D5W 5% 250 ML IV SCH (10:31)
[2017-09-01 13:00] VITALS: BP 137/63
[2017-09-01 17:00] VITALS: BP 101/56
[2017-09-01] MEDS: ATORVASTATIN 20 MG TAB PO SCH (21:22)
[2017-09-01] MEDS: INSULIN LANTUS (GLARGINE) 1 /0.01ml (100units/ml) SC SCH (21:25)
[2017-09-01 22:00] VITALS: BP 119/66
[2017-09-02 05:00] VITALS: BP 108/57
[2017-09-02 05:55] LABS: Hematocrit 32.6 % (41.0-53.0); Hemoglobin 10.8 g/dL (13.5-17.5); Mean Corpuscular Hemoglobin 28.5 pg (28.0-32.0); Mean Corpuscular Hgb Conc. 33.1 g/dL (32.0-36.0); Platelet Count (auto) 273 10^3/uL (140-450); Red Blood Cells 3.79 10^6/uL (4.5-5.90); Red Cell Distribution Width 14.3 % (11.8-14.3); White Blood Cell 7.7 10^3/uL (4.4-10.8)
[2017-09-02 06:06] LABS: Band Neutrophils % (manual) 0; Blast Cells 0; Metamyelocytes % 0; Myelocytes % 0; Promyelocytes % 0; Reactive Lymphocytes 0
[2017-09-02 06:09] LABS: Calcium 9.1 mg/dL (8.5-10.1); Potassium 4.9 mmol/L (3.5-5.1)
[2017-09-02] MEDS: InsuLIN REG 1unit/0.01ml Soln (100units/ml) SC SCH ×4 (06:15→21:50)
[2017-09-02] MEDS: ACCU-CHEK COMFORT CURVE STRIP VI SCH ×4 (06:15→21:50)
[2017-09-02 06:40] LABS: Basophils % (manual) 1 (0.0-2.0); Eosinophils % (manual) 3 (0-7); Lymphocytes % (manual) 62 (10.0-50.0); Monocytes % (manual) 16 (0-12)
[2017-09-02 08:50] VITALS: BP 152/73
[2017-09-02] MEDS: cefTRIAXone 1GM/10ml IVPUSH 10 ML IV SCH (09:07)
[2017-09-02] MEDS: CLOPIDOGREL BISULFATE 75 MG TAB PO SCH (09:07)
[2017-09-02] MEDS: LOSARTAN POTASSIUM 50 MG TAB PO SCH (09:08)
[2017-09-02] MEDS: PREGABALIN CAPSULE 75 MG CAP PO SCH (09:08)
[2017-09-02] MEDS: ONDANSETRON HCL 4 MG/2 ML VIAL IV PRN (10:56)
[2017-09-02] MEDS: HYDROcodone-ACET 10/325MG TAB PO PRN (12:09)
[2017-09-02 13:00] VITALS: BP 126/53
[2017-09-02 17:00] VITALS: BP 116/59
[2017-09-02] MEDS: ATORVASTATIN 20 MG TAB PO SCH (21:50)
[2017-09-02] MEDS: INSULIN LANTUS (GLARGINE) 1 /0.01ml (100units/ml) SC SCH (21:50)
[2017-09-02 22:00] VITALS: BP 119/46
[2017-09-02] MEDS ORDERED: VANCOMYCIN 1,250 MG in D5W 5% 250 ML IV SCH (22:00)
[2017-09-03] MEDS: ONDANSETRON HCL 4 MG/2 ML VIAL IV PRN (00:54)
[2017-09-03] MEDS: HYDROcodone-ACET 10/325MG TAB PO PRN (01:49)
[2017-09-03 04:47] VITALS: BP 102/56
[2017-09-03] MEDS: ACCU-CHEK COMFORT CURVE STRIP VI SCH ×2 (06:18→12:03)
[2017-09-03] MEDS: InsuLIN REG 1unit/0.01ml Soln (100units/ml) SC SCH ×2 (06:18→12:19)
[2017-09-03 07:00] LABS: BUN/Creatinine Ratio 23.7
[2017-09-03 07:01] LABS: Albumin 2.8 g/dL (3.4-5.0); Bilirubin, Total 0.3 mg/dL (0.2-1.0); Calcium 9.1 mg/dL (8.5-10.1); Total Protein 6.5 g/dL (6.4-8.2)
[2017-09-03 09:00] VITALS: BP 124/61
[2017-09-03] MEDS: cefTRIAXone 1GM/10ml IVPUSH 10 ML IV SCH (09:13)
[2017-09-03] MEDS: CLOPIDOGREL BISULFATE 75 MG TAB PO SCH (10:46)
[2017-09-03] MEDS: LOSARTAN POTASSIUM 50 MG TAB PO SCH (10:47)
[2017-09-03] MEDS: PREGABALIN CAPSULE 75 MG CAP PO SCH (10:47)
[2017-09-03 11:07] LABS: BUN/Creatinine Ratio 23.1; Bilirubin, Total 0.2 mg/dL (0.2-1.0); Calcium 9.1 mg/dL (8.5-10.1); Potassium 5.1 mmol/L (3.5-5.1); Total Protein 6.9 g/dL (6.4-8.2)
[2017-09-03 12:20] VITALS: BP 112/54
[2017-09-03 13:44] VITALS: BP 112/54
[2017-09-03 17:00] VITALS: BP 118/56
== END 2017-09-03 17:00 | disposition home or self-care (01) | DRG 871 ==
LOC: TELE-WESTW 17:23
PROVIDERS: ADMIT Internal Medicine Cardiovascular Disease; ATTEND Internal Medicine Cardiovascular Disease
PROC: 30233N1 Transfusion of Nonautologous Red Blood Cells into Peripheral Vein, Percutaneous Approach (ICD-10-PCS; principal; 2017-08-27)
DX: A41.9 Sepsis, unspecified organism (principal); E43 Unspecified severe protein-calorie malnutrition; C25.9 Malignant neoplasm of pancreas, unspecified; L03.115 Cellulitis of right lower limb; D64.9 Anemia, unspecified; Z71.3 Dietary counseling and surveillance; L03.116 Cellulitis of left lower limb; Z90.411 Acquired partial absence of pancreas
CPT/HCPCS: 36415; 71046; 74176; 80048; 80053; 80202; 82306; 82565; 82962; 83036; 83735; 85007; 85025; 85027; 86850; 86900; 86901; 86920; 87040; 93306; 93970; 96365; 96367; 96375; G0463; J1642; J1815; J1885; J2405; J7060

== ENCOUNTER → 2017-08-26 | Outpatient (CLI) | payer MEDICARE, OTHER ==
[~2017-08-26] VITALS: Ht 30.5 cm; Wt 0.5 kg
[~2017-08-26] MED LIST changes: +ASPI-231 PO; +INSLANTI SC; +INSLISPI SC; +KETOROLAC TROMETH 30 MG/ML 1ML VIAL IV ONE; +KETOROLAC TROMETH 60MG/2ML VIAL IM ONE; +VANCOMYCIN 1GM/250ML 250 ML IV ONE; +cefTRIAXone 1GM/10ml IVPUSH 10 ML IV ONE
[2017-08-26 11:30] VITALS: BP 117/48
[2017-08-26 13:37] LABS: Albumin 2.8 g/dL (3.4-5.0); BUN/Creatinine Ratio 21.3; Basophils # (auto) 0 uL; Basophils % (auto) 0.2 % (0.0-2.0); Bilirubin, Total 0.8 mg/dL (0.2-1.0); Calcium 8.6 mg/dL (8.5-10.1); Eosinophils # (auto) 0 uL; Eosinophils % (auto) 0.4 % (0.0-7.0); Hematocrit 28.7 % (41.0-53.0); Hemoglobin 9.4 g/dL (13.5-17.5); Lymphocytes # (auto) 2.4 uL; Lymphocytes % (auto) 35.7 % (10.0-50.0); Magnesium 2.2 mg/dL (1.6-2.6); Mean Corpuscular Hemoglobin 27.9 pg (28.0-32.0); Mean Corpuscular Hgb Conc. 32.8 g/dL (32.0-36.0); Mean Corpuscular Volume 84.9 fL (80.0-100.0); Monocytes # (auto) 0.2 uL; Monocytes % (auto) 2.4 % (0.0-12.0); Neutrophils # (auto) 4.1 uL; Neutrophils % (auto) 61.3 % (37.0-80.0); Nucleated Red Blood Cells % 0.1 %; Platelet Count (auto) 135 10^3/uL (140-450); Red Blood Cells 3.38 10^6/uL (4.5-5.90); Red Cell Distribution Width 14.4 % (11.8-14.3); White Blood Cell 6.7 10^3/uL (4.4-10.8)
[2017-08-26 16:30] VITALS: BP 110/47
== END | disposition home or self-care (01) ==
LOC: CHF HDHVI 11:30
PROVIDERS: ATTEND Internal Medicine Cardiovascular Disease
DX: E11.9 Type 2 diabetes mellitus without complications (principal); L03.116 Cellulitis of left lower limb; L03.115 Cellulitis of right lower limb; A41.9 Sepsis, unspecified organism; D64.9 Anemia, unspecified; E83.40 Disorders of magnesium metabolism, unspecified; R50.9 Fever, unspecified; R07.9 Chest pain, unspecified; C61 Malignant neoplasm of prostate; I11.0 Hypertensive heart disease with heart failure; I50.9 Heart failure, unspecified; M48.04 Spinal stenosis, thoracic region; E03.9 Hypothyroidism, unspecified; E78.00 Pure hypercholesterolemia, unspecified; E78.5 Hyperlipidemia, unspecified; N28.1 Cyst of kidney, acquired; I70.0 Atherosclerosis of aorta; N32.89 Other specified disorders of bladder; N40.0 Benign prostatic hyperplasia without lower urinary tract symptoms; K57.30 Diverticulosis of large intestine without perforation or abscess without bleeding; M51.37 Other intervertebral disc degeneration, lumbosacral region; Z95.0 Presence of cardiac pacemaker; Z90.81 Acquired absence of spleen; Z90.411 Acquired partial absence of pancreas; Z98.890 Other specified postprocedural states
CPT/HCPCS: 36415; 80053; 82306; 82565; 82962; 83036; 83735; 85025; 87040; 96365; 96367; 96375; G0463; J1642; J1885

== ENCOUNTER → 2017-12-04 | Outpatient (CLI) | payer MEDICARE, OTHER ==
[~2017-12-04] MED LIST changes: +ASPI-231 PO; -CANA300T PO; -GLIM2TAB33 PO; +INSLANTI SC; +INSLISPI SC; -LINA5TAB PO; -LIRA18IN2 SUBCUT; -METF-370 PO
== END | disposition home or self-care (01) ==
LOC: Rad HDHVI 15:51
PROVIDERS: ATTEND Internal Medicine Cardiovascular Disease
DX: I34.0 Nonrheumatic mitral (valve) insufficiency (principal); E11.9 Type 2 diabetes mellitus without complications; C25.9 Malignant neoplasm of pancreas, unspecified
CPT/HCPCS: 93306

== ENCOUNTER → 2018-01-13 | Outpatient (CLI) | payer MEDICARE, BC ==
[2018-01-13 12:15] VITALS: BP 123/74
[2018-01-13 15:50] VITALS: BP 118/58
== END | disposition home or self-care (01) ==
LOC: CHF HDHVI 12:41
PROVIDERS: ATTEND Internal Medicine Cardiovascular Disease
DX: Z53.9 Procedure and treatment not carried out, unspecified reason (principal)
CPT/HCPCS: G0463

== ENCOUNTER → 2018-04-14 | Outpatient (CLI) | payer MEDICARE, BC ==
[~2018-04-14] MED LIST changes: -CHOL20009 PO
[2018-04-14 12:38] VITALS: BP 176/74
== END | disposition home or self-care (01) ==
LOC: CHF HDHVI 12:39
PROVIDERS: ATTEND Internal Medicine Cardiovascular Disease
DX: C25.9 Malignant neoplasm of pancreas, unspecified (principal); I11.0 Hypertensive heart disease with heart failure; I50.9 Heart failure, unspecified; I25.10 Atherosclerotic heart disease of native coronary artery without angina pectoris; I48.91 Unspecified atrial fibrillation; E78.5 Hyperlipidemia, unspecified; E03.9 Hypothyroidism, unspecified; E78.00 Pure hypercholesterolemia, unspecified; E11.51 Type 2 diabetes mellitus with diabetic peripheral angiopathy without gangrene; E11.65 Type 2 diabetes mellitus with hyperglycemia; M10.9 Gout, unspecified; K57.90 Diverticulosis of intestine, part unspecified, without perforation or abscess without bleeding; M47.894 Other spondylosis, thoracic region; J32.8 Other chronic sinusitis; E21.3 Hyperparathyroidism, unspecified; Z90.411 Acquired partial absence of pancreas; Z90.81 Acquired absence of spleen; Z85.46 Personal history of malignant neoplasm of prostate; Z95.0 Presence of cardiac pacemaker; Z87.440 Personal history of urinary (tract) infections; Z95.828 Presence of other vascular implants and grafts
CPT/HCPCS: G0463; J1642; 96523

== ENCOUNTER → 2018-06-02 | Outpatient (CLI) | payer MEDICARE, BC ==
[2018-06-02 13:45] VITALS: BP 135/68
--- NOTE | 2018-06-02 14:15 | NUR ---
IN TO CLINIC WITH IN ATTENDANCE WITH QUESTION ABOUT FREESTYLE SENSOR APPLICATION. REVIEWED ALL PARTS OF PRODUCT WITH PATIENT AND WITH . SENSOR APPLIED ACCORDING TO WRITTEN INSTRUCTIONS PROVIDED IN BOX. TOLERATED WELL. ALL QUESTIONS ANSWERED AND ADDITIONAL QUESTIONS DENIED. SENSOR APPLIED TO RIGHT POSTERIOR ARM. Discharge Instructions See e-MAR for any mediations given with this visit. Patient education given on disease process. Patient verbalized understanding. Previous labs reviewed. Patient discharged in stable condition with after care instructions and follow up appointment.
== END | disposition home or self-care (01) ==
LOC: CHF HDHVI 11:43
PROVIDERS: ATTEND Internal Medicine Cardiovascular Disease
DX: E78.00 Pure hypercholesterolemia, unspecified (principal); Z95.0 Presence of cardiac pacemaker
CPT/HCPCS: G0463

== ENCOUNTER → 2018-07-07 | Outpatient (CLI) | payer MEDICARE, BC ==
[2018-07-07 13:30] VITALS: BP 129/62
--- NOTE | 2018-07-07 14:00 | NUR ---
CHF IN TO CLINIC FOR LEFT CHEST PORT FLUSH AND CARE. PT HAS FOLLOWUP AT [facility] FOR LABS AND CANCER CARE. NO LABS TODAY. Scheduled Lilo Cath Flush 20 gauge Flores needle inserted using sterile technique in the upper chest. Lilo Cath flushed with 20 mL's of 0.9% NS followed by 500 units per 5mL's Heparin. UNABLE TO ASPIRATE BLOOD. PT REPORTS THAT IS PER HIS NORMAL, DIFFICULT ASPIRATION. FLUSHED WITH 60 ML TOTAL OF SALINE AND FLORES INSERTION SITE REMAINS BENIGN. FLUSHED WITH HEPARIN 500 UNITS. Flores Needle D/C'd with sterile occlusive dressing to site. Patient tolerated procedure well. See e-MAR for medications given during this visit. MEDICATION ADMINISTRATION HEPARIN 500 UNITS IVP X 1 AT 1350 TO LEFT CHEST PORT
== END | disposition home or self-care (01) ==
LOC: Rad HDHVI 13:43
PROVIDERS: ATTEND Internal Medicine Cardiovascular Disease
DX: Z45.2 Encounter for adjustment and management of vascular access device (principal); E78.00 Pure hypercholesterolemia, unspecified; Z95.0 Presence of cardiac pacemaker
CPT/HCPCS: G0463; J1642; 96523

== ENCOUNTER → 2018-07-18 | Outpatient (CLI) | payer MEDICARE, BC ==
[~2018-07-18] MED LIST changes: +ceFAZolin 1GM 2 GM in D5W 5% 100 ML IV ONE; +ceFAZolin 1GM/50ML 100 ML IV ONE
[2018-07-18 13:35] VITALS: BP 125/61
[2018-07-18 15:00] VITALS: BP 135/67
--- NOTE | 2018-07-18 15:00 | NUR ---
IN TO CLINIC AFTER SEEING PHYSICIAN. 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 ORDERS RECIEVED FOR IV ANCEF 2 GRAMS X 1 IVPB. IV PLACED TO LEFT CHEST POWER PORT AND FLUSHES WELL. WITHOUT DISTRESS OR DISCOMFORT REPEAT BACK INSTRUCTIONS OBTAINED WITH QUESTIONS DENIED. IV ADMINISTERED AND IV SITE DCD POST USE AND SITE REMAINS BENIGN. DISCHARGED TO CARE OF . . MEDICATION ADMINISTRATION ANCEF 2 GRAMS IVPB IN 110 ML 0.9NS WITH RATE AT 110 ML/HR START AT 1354/STOP AT 1455 HEPARIN 500 UNITS IVP
== END | disposition home or self-care (01) ==
LOC: CHF HDHVI 13:39
PROVIDERS: ATTEND Internal Medicine Cardiovascular Disease
DX: L08.9 Local infection of the skin and subcutaneous tissue, unspecified (principal); E78.00 Pure hypercholesterolemia, unspecified; I10 Essential (primary) hypertension; Z85.07 Personal history of malignant neoplasm of pancreas; Z95.0 Presence of cardiac pacemaker
CPT/HCPCS: 96365; G0463; J0690; J1642

== ENCOUNTER → 2018-08-11 | Outpatient (CLI) | payer MEDICARE, BC ==
[~2018-08-11] VITALS: Ht 170.2 cm; Wt 80.7 kg
[~2018-08-11] MED LIST changes: -ceFAZolin 1GM 2 GM in D5W 5% 100 ML IV ONE; -ceFAZolin 1GM/50ML 100 ML IV ONE
== END | disposition home or self-care (01) ==
LOC: Rad HDHVI 13:29
PROVIDERS: ATTEND Internal Medicine Cardiovascular Disease
DX: I08.8 Other rheumatic multiple valve diseases (principal); E78.1 Pure hyperglyceridemia; I20.9 Angina pectoris, unspecified; C25.9 Malignant neoplasm of pancreas, unspecified; I10 Essential (primary) hypertension; R26.81 Unsteadiness on feet; I27.20 Pulmonary hypertension, unspecified; E11.9 Type 2 diabetes mellitus without complications
CPT/HCPCS: 78452; 93017; 93306; 96374; A9500

== ENCOUNTER → 2018-10-06 | Outpatient (CLI) | payer MEDICARE, BC ==
[~2018-10-06] VITALS: Ht 30.5 cm; Wt 0.5 kg
[2018-10-06 11:26] VITALS: BP 124/51
[2018-10-06 11:46] VITALS: BP 107/58
--- NOTE | 2018-10-06 11:46 | NUR ---
LEFT CHEST PORT ACCESSED AND FLUSHED PER PROTOCOL. TOLERATED WELL. BLOOD ASPIRATED AND VERIFIED AND FLUSHES WELL. Discharge Instructions See e-MAR for any mediations given with this visit. Patient education given on disease process. Patient verbalized understanding. Previous labs reviewed. Patient discharged in stable condition with IN ATTENDANCE.
== END | disposition home or self-care (01) ==
LOC: CHF HDHVI 11:34
PROVIDERS: ATTEND Internal Medicine Cardiovascular Disease
DX: Z45.2 Encounter for adjustment and management of vascular access device (principal); I11.0 Hypertensive heart disease with heart failure; I50.9 Heart failure, unspecified; E11.9 Type 2 diabetes mellitus without complications; E78.1 Pure hyperglyceridemia; Z85.07 Personal history of malignant neoplasm of pancreas
CPT/HCPCS: G0463; J1642; 96523

== ENCOUNTER → 2018-12-02 | Outpatient (CLI) | payer MEDICARE, BC ==
[~2018-12-02] VITALS: Ht 33 cm; Wt 80.7 kg
[~2018-12-02] MED LIST changes: +CEFAZOLIN IV ONE; +D5W 5% IV ONE; +ONDANSETRON HCL 4 MG/2 ML VIAL IV ONE; +ONDANSETRON HCL 4 MG/2 ML VIAL ONE; +ceFAZolin 1GM/50ML 100 ML IV ONE
[2018-12-02 12:50] VITALS: BP 107/62
[2018-12-02 15:49] LABS: Basophils # (auto) 0 uL; Basophils % (auto) 0.2 % (0.0-2.0); Eosinophils # (auto) 0.1 uL; Eosinophils % (auto) 1.5 % (0.0-7.0); Hematocrit 35.6 % (41.0-53.0); Hemoglobin 11.9 g/dL (13.5-17.5); Lymphocytes % (auto) 28.3 % (10.0-50.0); Mean Corpuscular Hgb Conc. 33.5 g/dL (32.0-36.0); Mean Corpuscular Volume 92.4 fL (80.0-100.0); Monocytes # (auto) 0.6 uL; Monocytes % (auto) 8.4 % (0.0-12.0); Neutrophils # (auto) 4.5 uL; Neutrophils % (auto) 61.6 % (37.0-80.0); Nucleated Red Blood Cells % 1.4 %; Platelet Count (auto) 141 10^3/uL (140-450); Red Blood Cells 3.85 10^6/uL (4.5-5.90); Red Cell Distribution Width 14.6 % (11.8-14.3); White Blood Cell 7.2 10^3/uL (4.4-10.8)
== END | disposition home or self-care (01) ==
LOC: CHF HDHVI 11:02
PROVIDERS: ATTEND Internal Medicine Cardiovascular Disease
DX: L03.119 Cellulitis of unspecified part of limb (principal); D64.9 Anemia, unspecified
CPT/HCPCS: 36415; 85025; 96365; 96375; G0463; J0690; J1642; J2405; J7060

== ENCOUNTER → 2019-03-27 | Outpatient (CLI) | payer MEDICARE, BC ==
[~2019-03-27] MED LIST changes: -CEFAZOLIN IV ONE; -D5W 5% IV ONE; -ONDANSETRON HCL 4 MG/2 ML VIAL IV ONE; -ONDANSETRON HCL 4 MG/2 ML VIAL ONE; -ceFAZolin 1GM/50ML 100 ML IV ONE
== END | disposition home or self-care (01) ==
LOC: Rad HDHVI 12:17
PROVIDERS: ATTEND Internal Medicine Cardiovascular Disease
DX: M16.0 Bilateral primary osteoarthritis of hip (principal); M25.559 Pain in unspecified hip; M54.5 Low back pain; M85.88 Other specified disorders of bone density and structure, other site; I70.8 Atherosclerosis of other arteries
CPT/HCPCS: 72100

== ENCOUNTER → 2019-08-13 | Outpatient (CLI) | payer MEDICARE, OTHER ==
[~2019-08-13] MED LIST changes: -ASPI-231 PO; +BUSP5TAB51 PO; +CARB200T4 PO; +GABA100C9 PO; +IRBE150T49 PO; +NAP500T PO; -OMEG600C2 PO; +OXY5T PO; -[UNRECOGNIZED DRUG - CODE] PO
== END | disposition home or self-care (01) ==
LOC: Rad HDHVI 15:59
PROVIDERS: ATTEND Internal Medicine Cardiovascular Disease
DX: I35.8 Other nonrheumatic aortic valve disorders (principal); I10 Essential (primary) hypertension; R06.02 Shortness of breath
CPT/HCPCS: 93306

== ENCOUNTER → 2019-08-17 | Outpatient (CLI) | payer MEDICARE, OTHER ==
[~2019-08-17] MED LIST changes: -IRBE150T49 PO; +MUPIROCIN 2% OINT 15gm or 22gm ONE; +MUPIROCIN 2% OINT 15gm or 22gm TOP ONE; +[UNRECOGNIZED DRUG - CODE] PO
[2019-08-17 12:40] VITALS: BP 120/61
[2019-08-17 13:05] VITALS: BP 120/60
== END | disposition home or self-care (01) ==
LOC: CHF HDHVI 12:49
PROVIDERS: ATTEND Internal Medicine Cardiovascular Disease
DX: I50.9 Heart failure, unspecified (principal)
CPT/HCPCS: G0463

== ENCOUNTER → 2019-08-24 | Outpatient (CLI) | payer MEDICARE, BC ==
[~2019-08-24] MED LIST changes: +CYANOCOBALAMIN (B-12) 1000 MCG/1 ML VIAL IM ONE; +CYANOCOBALAMIN (B-12) 1000 MCG/1 ML VIAL ONE; -MUPIROCIN 2% OINT 15gm or 22gm ONE; -MUPIROCIN 2% OINT 15gm or 22gm TOP ONE; +levoFLOXacin 500MG 100 ML IV ONE
[2019-08-24 14:00] VITALS: BP 123/53
[2019-08-24 16:50] LABS: Basophils # (auto) 0 10 ^3/uL (0-0.2); Basophils % (auto) 0.8 % (0.0-2.0); Eosinophils # (auto) 0 10 ^3/uL (0-0.8); Eosinophils % (auto) 0.2 % (0.0-7.0); Hematocrit 33.4 % (41.0-53.0); Lymphocytes # (auto) 1.9 10 ^3/uL (0.4-5.4); Lymphocytes % (auto) 43.9 % (10.0-50.0); Mean Corpuscular Hemoglobin 32.7 pg (28.0-32.0); Monocytes # (auto) 0.4 10 ^3/uL (0-1.3); Monocytes % (auto) 8.3 % (0.0-12.0); Neutrophils % (auto) 46.8 % (37.0-80.0); Platelet Count (auto) 162 10^3/uL (140-450); Red Blood Cells 3.38 10^6/uL (4.5-5.90); Red Cell Distribution Width 15.1 % (11.8-14.3); White Blood Cell 4.3 10^3/uL (4.4-10.8)
[2019-08-24 16:57] LABS: BUN/Creatinine Ratio 18.5; Calcium 8.5 mg/dL (8.5-10.1); Magnesium 2.1 mg/dL (1.6-2.6); Potassium 4.7 mmol/L (3.5-5.1)
[2019-08-24 17:25] VITALS: BP 146/68
== END | disposition home or self-care (01) ==
LOC: CHF HDHVI 13:50
PROVIDERS: ATTEND Internal Medicine Cardiovascular Disease
DX: L03.115 Cellulitis of right lower limb (principal); I25.10 Atherosclerotic heart disease of native coronary artery without angina pectoris; D64.9 Anemia, unspecified; I11.0 Hypertensive heart disease with heart failure; I50.9 Heart failure, unspecified; E11.9 Type 2 diabetes mellitus without complications; Z79.899 Other long term (current) drug therapy
CPT/HCPCS: 36415; 80048; 83036; 83735; 85025; 96365; 96372; G0463; J1642; J1956; J3420

== ENCOUNTER → 2019-09-14 | Outpatient (CLI) | payer MEDICARE, BC ==
[~2019-09-14] VITALS: Ht 30.5 cm; Wt 0.5 kg
[~2019-09-14] MED LIST changes: -CYANOCOBALAMIN (B-12) 1000 MCG/1 ML VIAL IM ONE; -CYANOCOBALAMIN (B-12) 1000 MCG/1 ML VIAL ONE; +MVI in SODIUM CHLORIDE 0.9% 1,000 ML IVB ONE; +MVI in SODIUM CHLORIDE 0.9% 1,010 ML ONE; +SODIUM CHLORIDE 0.9% 1,000 ML IV ONE; -levoFLOXacin 500MG 100 ML IV ONE
[2019-09-14 11:30] VITALS: BP 99/62
[2019-09-14 12:20] LABS: Basophils # (auto) 0.1 10 ^3/uL (0-0.2); Basophils % (auto) 0.9 % (0.0-2.0); Eosinophils # (auto) 0.2 10 ^3/uL (0-0.8); Hematocrit 36.1 % (41.0-53.0); Hemoglobin 12.2 g/dL (13.5-17.5); Lymphocytes # (auto) 3.4 10 ^3/uL (0.4-5.4); Lymphocytes % (auto) 41.8 % (10.0-50.0); Mean Corpuscular Hemoglobin 33.4 pg (28.0-32.0); Mean Corpuscular Hgb Conc. 33.8 g/dL (32.0-36.0); Mean Corpuscular Volume 98.9 fL (80.0-100.0); Monocytes # (auto) 1.3 10 ^3/uL (0-1.3); Monocytes % (auto) 16.3 % (0.0-12.0); Neutrophils # (auto) 3.1 10 ^3/uL (1.6-8.6); Nucleated Red Blood Cells % 0.2 %; Platelet Count (auto) 217 10^3/uL (140-450); Red Blood Cells 3.65 10^6/uL (4.5-5.90)
[2019-09-14 12:51] LABS: Albumin 3.1 g/dL (3.4-5.0); Calcium 8.6 mg/dL (8.5-10.1); Magnesium 2.4 mg/dL (1.6-2.6); Potassium 4.1 mmol/L (3.5-5.1)
[2019-09-14 12:54] LABS: BUN/Creatinine Ratio 20.4; Bilirubin, Total 0.8 mg/dL (0.2-1.0); Total Protein 6.9 g/dL (6.4-8.2)
[2019-09-14 16:00] VITALS: BP 127/50
== END | disposition home or self-care (01) ==
LOC: CHF HDHVI 11:22
PROVIDERS: ATTEND Internal Medicine Cardiovascular Disease
DX: D64.9 Anemia, unspecified (principal); I11.0 Hypertensive heart disease with heart failure; I50.9 Heart failure, unspecified; R19.7 Diarrhea, unspecified; E86.0 Dehydration; R53.83 Other fatigue; I25.10 Atherosclerotic heart disease of native coronary artery without angina pectoris; E11.9 Type 2 diabetes mellitus without complications; Z79.899 Other long term (current) drug therapy
CPT/HCPCS: 36415; 80053; 83735; 85025; 96365; 96366; G0463; J3411; J3475; J7030; 96367

== ENCOUNTER 2019-10-03 15:44 | Emergency (ER) | payer MEDICARE, BC ==
[~2019-10-03] VITALS: Ht 167.6 cm; Wt 80.7 kg
[~2019-10-03 15:44] MED LIST changes: -MVI in SODIUM CHLORIDE 0.9% 1,000 ML IVB ONE; -MVI in SODIUM CHLORIDE 0.9% 1,010 ML ONE; -SODIUM CHLORIDE 0.9% 1,000 ML IV ONE
[2019-10-03 15:55] VITALS: BP 125/50
[2019-10-03] MEDS ORDERED: HYDROcodone-ACET 7.5/325MG TAB PO ONE (17:15)
== END 2019-10-03 17:34 | disposition home or self-care (01) ==
LOC: ER 15:44
DX: S22.32XA Fracture of one rib, left side, initial encounter for closed fracture (principal); I11.0 Hypertensive heart disease with heart failure; I50.9 Heart failure, unspecified; E11.9 Type 2 diabetes mellitus without complications; Z95.0 Presence of cardiac pacemaker; W01.0XXA Fall on same level from slipping, tripping and stumbling without subsequent striking against object, initial encounter; Y93.89 Activity, other specified; Y92.89 Other specified places as the place of occurrence of the external cause; Y99.8 Other external cause status
CPT/HCPCS: 71101

== ENCOUNTER → 2019-11-16 | Outpatient (CLI) | payer MEDICARE, BC ==
[~2019-11-16] MED LIST changes: +CYANOCOBALAMIN (B-12) 1000 MCG/1 ML VIAL IM ONE; +CYANOCOBALAMIN (B-12) 1000 MCG/1 ML VIAL ONE; +IRBE150T49 PO; +SODIUM CHLORIDE 0.9% 500 ML IV ONE; -[UNRECOGNIZED DRUG - CODE] PO
--- NOTE | 2019-11-16 12:15 | NUR ---
IV insertion IV access obtained, via clean sterile technique by inserting 22 gauge catheter at after 1 attempt(s). IV secured properly. No trauma to site. Patient tolerated procedure well. NOTE INSERTED BY CHRIS SCHAEFER Addendum: 11/16/19 at 1434 by ROBER HURST RN RN CT IV INSERTION @ [id number] NOT [id number]
[2019-11-16 12:48] VITALS: BP 138/66
--- NOTE | 2019-11-16 12:48 | NUR ---
CLINIC PT ARRIVED TO THE CHF CLINIC FROM BACK OFFICE WITH ORDERS FOR IV HYDRATION AND XRAYS. PT S/P FALL OUT OF WHEELCHAIR AT HOME ON SATURDAY. A/OX3, HOME WHEELCHAIR. ACCOMPANIED BY . PT HAS A SMALL BUMP ON FOREHEAD AND SOME CLOSED SCAB SCRATCHES ON THE R LEG. PT AND STATED THAT THERE WAS A PREVIOUS FALL ABOUT 3 WEEKS AGO WHERE THE PT SUSTAINED SOME BROKEN RIBS. DENIES FEELING DIZZY OR LOSING CONSCIOUS, STATES HE JUST MISJUDGES AND LOSES BALANCE.
--- NOTE | 2019-11-16 13:30 | NUR ---
NS STARTED @ 250ML/HR PER MD ORDERS. VSS. WILL CONTINUE TO MONITOR.
--- NOTE | 2019-11-16 15:46 | NUR ---
IV removal IV DC'd with sterile technique, catheter fully intact. Pressure dressing applied to site. Patient tolerated procedure well. Discharged with aftercare instructions per MD. NOTE: REMOVED BY ROBER SCHAEFER
--- NOTE | 2019-11-16 15:48 | NUR ---
DISCHARGE ASSESSMENT PT BP 92/46. UPON ARRIVAL IT WAS 138/66. AFTER HAVING A DISCUSSION WITH THE SHE STATED THAT SHE GAVE HIM HIS BLOOD PRESSURE MEDICATION. SHE DOES NOT HAVE A PILL BOTTLE ONLY A PAPER THAT STATES IRBESARTAN 150MG. SHE WAS NOT SURE THE DOSAGE. WE ATTEMPTED TO CALL [facility] PER PT BUT THEY WAS NO RECORD OF THEM FILLING THE PRESCRIPTION THERE. WILL CONTINUE TO MONITOR
--- NOTE | 2019-11-16 16:00 | NUR ---
AFTER OBSERVING THE PT THE B/P IS CONTINUING TO DECLINE 87/37. AWARE
--- NOTE | 2019-11-16 16:13 | NUR ---
B/P 77/34 NEW ORDERS RECEIVED AND CARRIED OUT BY MD DELGADO.
--- NOTE | 2019-11-16 16:20 | NUR ---
IV insertion IV access obtained, via clean sterile technique by inserting 22 gauge catheter at RA after 1 attempt(s). IV secured properly. No trauma to site. Patient tolerated procedure well. B/P 77/34 NS STARTED @ 400ML/HR
--- NOTE | 2019-11-16 16:35 | NUR ---
IV insertion IV access obtained, via clean sterile technique by inserting 22 gauge catheter at LFA after 1 attempt(s). IV secured properly. No trauma to site. Patient tolerated procedure well. IV FLUIDS INCREASED TO 500ML/HR PER MD ORDER.
--- NOTE | 2019-11-16 16:50 | NUR ---
B/P 100/41
--- NOTE | 2019-11-16 17:00 | NUR ---
B/P 93/41
--- NOTE | 2019-11-16 17:22 | NUR ---
IV removal RH IV DC'd with sterile technique, catheter fully intact. Pressure dressing applied to site. Patient tolerated procedure well. Discharged with aftercare instructions per MD. NOTE: REMOVED BY ROBER SCHAEFER
--- NOTE | 2019-11-16 17:29 | NUR ---
IV removal LFA IV DC'd with sterile technique, catheter fully intact. Pressure dressing applied to site. Patient tolerated procedure well. Discharged with aftercare instructions per MD. NOTE: REMOVED BY ROBER SCHAEFER
[2019-11-16 17:31] VITALS: BP 111/49
--- NOTE | 2019-11-16 17:31 | NUR ---
Discharge Instructions See e-MAR for any mediations given with this visit. Patient education given on disease process. Patient verbalized understanding. Previous labs reviewed. Patient discharged in stable condition with after care instructions and follow up appointment ON 12/16/19. PT TO HOLD IRBESARTAN UNTIL DOSAGE IS VERIFIED. HOME HEALTH TO REEVALUATE B/P AT HOME. NOTE NS IV [id number] ADMIN BY CHRIS SCHAEFER VIT B12 IM ADMIN BY ROBER SCHAEFER L DELTOID LOT#[id number] EXP 07/29 NS IV [id number] ADMIN BY CHRIS SCHAEFER
== END | disposition home or self-care (01) ==
LOC: Rad HDHVI 12:32
PROVIDERS: ATTEND Internal Medicine Cardiovascular Disease
DX: E86.0 Dehydration (principal); R53.83 Other fatigue; R07.81 Pleurodynia; R06.02 Shortness of breath; R51 Headache; I11.0 Hypertensive heart disease with heart failure; I50.9 Heart failure, unspecified; E11.9 Type 2 diabetes mellitus without complications
CPT/HCPCS: 70450; 71100; 96360; 96361; 96372; G0463; J3420; 96366

== ENCOUNTER → 2020-02-24 | Outpatient (CLI) | payer MEDICARE, BC ==
[~2020-02-24] MED LIST changes: -CYANOCOBALAMIN (B-12) 1000 MCG/1 ML VIAL IM ONE; -CYANOCOBALAMIN (B-12) 1000 MCG/1 ML VIAL ONE; -SODIUM CHLORIDE 0.9% 500 ML IV ONE
[2020-02-24 10:30] VITALS: BP 130/68
[2020-02-24 11:26] LABS: BUN/Creatinine Ratio 11.6; Calcium 9.1 mg/dL (8.5-10.1); Magnesium 2.1 mg/dL (1.6-2.6); Potassium 3.8 mmol/L (3.5-5.1)
[2020-02-24 11:31] LABS: Hematocrit 39.8 % (41.0-53.0); Hemoglobin 13.1 g/dL (13.5-17.5); Mean Corpuscular Hemoglobin 31.2 pg (28.0-32.0); Mean Corpuscular Volume 94.6 fL (80.0-100.0); Platelet Count (auto) 149 10^3/uL (140-450); Red Cell Distribution Width 16.4 % (11.8-14.3); White Blood Cell 7.2 10^3/uL (4.4-10.8)
[2020-02-24 11:36] LABS: Band Neutrophils % (manual) 0; Basophils % (manual) 0 (0.0-2.0); Blast Cells 0; Eosinophils % (manual) 0 (0-7); Metamyelocytes % 0; Myelocytes % 0; Promyelocytes % 0
[2020-02-24 12:38] LABS: Lymphocytes % (manual) 45 (10.0-50.0); Monocytes % (manual) 20 (0-12); Reactive Lymphocytes 8
[2020-02-24 13:00] VITALS: BP 132/70
== END | disposition home or self-care (01) ==
LOC: CHF HDHVI 10:33
PROVIDERS: ATTEND Internal Medicine Cardiovascular Disease
DX: C25.9 Malignant neoplasm of pancreas, unspecified (principal); R06.02 Shortness of breath; I51.7 Cardiomegaly; E11.9 Type 2 diabetes mellitus without complications; I25.10 Atherosclerotic heart disease of native coronary artery without angina pectoris; Z86.711 Personal history of pulmonary embolism
CPT/HCPCS: 36415; 71046; 80048; 83735; 85007; 85027; 93005; G0463

== ENCOUNTER 2020-03-13 01:51 | Emergency (ER) | payer MEDICARE, BC ==
[~2020-03-13] VITALS: Ht 182.9 cm; Wt 99.8 kg
[2020-03-13 02:03] VITALS: BP 132/62
== END 2020-03-13 07:39 | disposition home or self-care (01) ==
LOC: ER 01:51 → EDBD 01:51 → ER 07:39
DX: N39.0 Urinary tract infection, site not specified (principal); N40.0 Benign prostatic hyperplasia without lower urinary tract symptoms; I11.0 Hypertensive heart disease with heart failure; I50.9 Heart failure, unspecified
CPT/HCPCS: 51702; 93005

== ENCOUNTER → 2020-03-14 | Outpatient (CLI) | payer MEDICARE, BC ==
[~2020-03-14] MED LIST changes: +ACETAMINOPHEN 500 MG TAB PO ONE; +DexAMETHasone SOD PHOS 10MG/1ML VIAL INJ IV ONE; +DexAMETHasone SOD PHOS 10MG/1ML VIAL INJ ONE
[2020-03-14 12:30] VITALS: BP 152/72
--- NOTE | 2020-03-14 12:30 | NUR ---
PT. TO CHF CLINIC VIA WC WITH SPOUSE. AOX4, WITH LOW GRADE FEVER. . PT. C/O PAIN IN GENITAL AREA, BUT STATES NEW [place]LIN CATHETER WAS PLACED BY HOME HEALTH NURSE, AND PT. HAS THIS TYPE OF PAIN POST INSERTION. WHO ALSO BEING TREATED STATES THEY WERE WITH THEIR SON FOR THANKSGIVING AND HE IS NOW IN HOSPITAL AT [facility] X 2 DAYS. COVOD PROTOCOL IN PLACE BY THIS RN AND PHOTOGRAPHIC PROCESS SCREEN MAKER FOR CARE OF PT. AND SPOUSE. DR. DELGADO NOTIFIED OF PT'S STATUS WITH PRELIM. ORDERS RECEIVED. RA DSATS 88-89%. O2 PLACED AT 2L/NC WITH SATS IMPROVING TO 94%. PT. WITH KNOWN HX: OF AUTO IMMUNE PROBLEMS, GOING TO [facility] FOR CANCER [facility]. ORDER RECEIVED TO USE [facility] FOR LABS AND MEDS.
--- NOTE | 2020-03-14 13:05 | NUR ---
Lilo Cath Insertion 20 gauge Lilo Cath inserted using sterile technique in the upper chest with occlusive dressing over garcia needle. Patient tolerated procedure well. Ordered labs drawn and sent. See e-MAR for medications given during this visit.
--- NOTE | 2020-03-14 13:20 | NUR ---
PT. TO AND FROM X-RAY VIA WC. RESTING COMFORTABLY AT THIS TIME.
[2020-03-14 13:30] VITALS: BP 112/58
--- NOTE | 2020-03-14 13:30 | NUR ---
CLINIC PT ARRIVED TO THE CLINIC FOR MONTHLY PAH EVAL. A/O X4, AMBULATORY, PT ARRIVED ON HOME O2 3L N/C, BREATHING IS EVEN AND UNLABORED. Addendum: 03/14/20 at 1431 by ROBER HURST RN RN WRONG PT
--- NOTE | 2020-03-14 13:35 | NUR ---
MEDS: PT. MEDICATED WITH TYLENOL 500MG PO FOR TEMP OF 100.6
[2020-03-14 13:50] VITALS: BP 115/59
--- NOTE | 2020-03-14 13:50 | NUR ---
DR. DELGADO AT BEDSIDE FOR EXAM. NEW ORDERS RECEIVED AND CARRIED OUT.
[2020-03-14 13:57] LABS: Hematocrit 35.7 % (41.0-53.0); Hemoglobin 11.7 g/dL (13.5-17.5); Mean Corpuscular Hemoglobin 30.8 pg (28.0-32.0); Mean Corpuscular Hgb Conc. 32.9 g/dL (32.0-36.0); Mean Corpuscular Volume 93.7 fL (80.0-100.0); Platelet Count (auto) 175 10^3/uL (140-450); Red Blood Cells 3.81 10^6/uL (4.5-5.90); Red Cell Distribution Width 16.4 % (11.8-14.3); White Blood Cell 7.5 10^3/uL (4.4-10.8)
--- NOTE | 2020-03-14 13:57 | NUR ---
PT. SWABBED FOR COVID19 BY TECH. TOLERATED PROCEDURE WELL.
[2020-03-14 14:04] LABS: Band Neutrophils % (manual) 0; Basophils % (manual) 0 (0.0-2.0); Blast Cells 0; Metamyelocytes % 0; Myelocytes % 0; Promyelocytes % 0; Reactive Lymphocytes 0
[2020-03-14 14:10] LABS: Potassium 3.9 mmol/L (3.5-5.1)
[2020-03-14 14:16] LABS: Albumin 2.4 g/dL (3.4-5.0); Bilirubin, Total 0.8 mg/dL (0.2-1.0); Calcium 8.1 mg/dL (8.5-10.1); Magnesium 2.4 mg/dL (1.6-2.6); Total Protein 6.4 g/dL (6.4-8.2)
--- NOTE | 2020-03-14 14:30 | NUR ---
FRANKLIN EMPTIED WITH 225 CC U.O. NOTED.
[2020-03-14 14:40] LABS: Eosinophils % (manual) 1 (0-7); Lymphocytes % (manual) 37 (10.0-50.0); Monocytes % (manual) 22 (0-12)
--- NOTE | 2020-03-14 14:55 | NUR ---
MEDS: DECADRON 6MG SIVP GIVEN PER MD ORDER.
--- NOTE | 2020-03-14 14:59 | NUR ---
Lilo Cath Removal Hernandez needle D/C'd after Heparin flush per protocol. See e-MAR for medications given during this visit. Sterile occlusive dressing to site. Patient tolerated procedure well. Site benign post infusion.
[2020-03-14 15:30] VITALS: BP 148/80
--- NOTE | 2020-03-14 15:30 | NUR ---
Discharge Instructions See e-MAR for any mediations given with this visit. Patient education given on disease process. Patient verbalized understanding. Previous labs reviewed. Patient discharged in stable condition with after care instructions and follow up appointment. RX FOR Z-CASEY 5 DAY REGIMEN, PREDISONE 40MG DAILY X 7 DAYS, ZINC 220MG DAILY CALLED INTO [facility]S [facility] PER MD ORDER. PT. WISHES TO CHANGE TO [facility] FOR FOLLOW CARE AND P.T. THERAPY PER MD ORDER. DC'D STABLE WITH SPOUSE AND FAMILY, WITH INSTRUCTIONS OF HIGH RISK PT. NEEDING ALL COVID PRECAUTIONS IN PLACE. PT. WAS PLACED ON N-95 MASK UPON ARRIVAL AND DC'D WITH SAME. FAMILY MEMBERS ADVISED TO GET TESTED ALBAN.. PT. IS TAKING VIT. D 5000UNITS DAILY AND INSTRUCTED TO TAKE VIT. C 2 GMS DAILY.
== END | disposition home or self-care (01) ==
LOC: CHF HDHVI 12:39
PROVIDERS: ATTEND Internal Medicine Cardiovascular Disease
DX: J98.11 Atelectasis (principal); R05 Cough; M47.814 Spondylosis without myelopathy or radiculopathy, thoracic region; I50.23 Acute on chronic systolic (congestive) heart failure; Z98.890 Other specified postprocedural states
CPT/HCPCS: 36415; 71046; 80053; 83735; 85007; 85027; 96374; 96375; G0463; J1100; J1642

== ENCOUNTER 2020-03-16 02:33 | Emergency (ER) | payer MEDICARE, BC ==
[~2020-03-16] VITALS: Ht 167.6 cm; Wt 80.7 kg
[~2020-03-16 02:33] MED LIST changes: -ACETAMINOPHEN 500 MG TAB PO ONE; -DexAMETHasone SOD PHOS 10MG/1ML VIAL INJ IV ONE; -DexAMETHasone SOD PHOS 10MG/1ML VIAL INJ ONE
[2020-03-16] MEDS ORDERED: HYDROmorphone HCL 2 MG/ML VL IM ONE (04:00)
[2020-03-16] MEDS ORDERED: ONDANSETRON HCL 4 MG/2 ML VIAL IV ONE ×2 (04:15→11:00)
[2020-03-16 05:14] LABS: Hematocrit 41.8 % (41.0-53.0); Hemoglobin 13.5 g/dL (13.5-17.5); Mean Corpuscular Hemoglobin 30.5 pg (28.0-32.0); Mean Corpuscular Hgb Conc. 32.3 g/dL (32.0-36.0); Mean Corpuscular Volume 94.3 fL (80.0-100.0); Platelet Count (auto) 235 10^3/uL (140-450); Red Blood Cells 4.43 10^6/uL (4.5-5.90); Red Cell Distribution Width 16.7 % (11.8-14.3); White Blood Cell 7.4 10^3/uL (4.4-10.8)
[2020-03-16 05:20] LABS: Band Neutrophils % (manual) 0; Basophils % (manual) 0 (0.0-2.0); Blast Cells 0; Eosinophils % (manual) 0 (0-7); Metamyelocytes % 0; Myelocytes % 0; Promyelocytes % 0; Reactive Lymphocytes 0
[2020-03-16 05:25] LABS: Albumin 2.8 g/dL (3.4-5.0); Calcium 9.1 mg/dL (8.5-10.1)
[2020-03-16 05:29] LABS: BUN/Creatinine Ratio 19.7; Bilirubin, Total 0.6 mg/dL (0.2-1.0); Lactic Acid w/Reflex 4.8 mmol/L (0.4-2.0); Total Protein 7.7 g/dL (6.4-8.2)
[2020-03-16 06:48] LABS: Lymphocytes % (manual) 20 (10.0-50.0); Monocytes % (manual) 28 (0-12)
[2020-03-16 09:42] LABS: Urine Bacteria FEW /hpf (None Seen); Urine Blood 2+ /uL (Negative); Urine Hyaline Cast FEW /lpf (0 - 2); Urine Specific Gravity 1.019 (1.001-1.035); Urine WBC 8 /hpf (0 - 3)
[2020-03-16] MEDS ORDERED: HYDROmorphone HCL 2 MG/ML VL IV ONE (11:00)
[2020-03-16 13:30] VITALS: BP 157/79
== END 2020-03-16 14:17 | disposition home or self-care (01) ==
LOC: EDBD 02:33 → ER 02:40
DX: R10.9 Unspecified abdominal pain (principal); R11.2 Nausea with vomiting, unspecified; Z20.828 Contact with and (suspected) exposure to other viral communicable diseases
CPT/HCPCS: 36415; 71045; 74176; 80053; 81001; 82150; 82728; 83605; 83690; 85007; 85027; 86141; 87426; 96372; 96374; 96375; 96376; 99285; C9803; J1170; J2405; U0003

== ENCOUNTER 2020-10-07 13:41 | Emergency (ER) | payer MEDICARE, BC ==
[~2020-10-07] VITALS: Ht 167.6 cm; Wt 63.5 kg
[2020-10-07] MEDS ORDERED: ONDANSETRON HCL 4 MG/2 ML VIAL IV ONE (14:15)
[2020-10-07] MEDS ORDERED: MORPHINE SULF INJ 2 MG/ML SYRINGE 1ML IV ONE (14:15)
[2020-10-07 15:15] LABS: Albumin 2.5 g/dL (3.4-5.0); Calcium 8.4 mg/dL (8.5-10.1); Potassium 3.6 mmol/L (3.5-5.1)
[2020-10-07 15:20] LABS: Hematocrit 33.4 % (41.0-53.0); Hemoglobin 11.8 g/dL (13.5-17.5); Mean Corpuscular Hemoglobin 36.8 pg (28.0-32.0); Mean Corpuscular Hgb Conc. 35.2 g/dL (32.0-36.0); Mean Corpuscular Volume 104.6 fL (80.0-100.0); Platelet Count (auto) 136 10^3/uL (140-450); Red Cell Distribution Width 15.8 % (11.8-14.3); White Blood Cell 9.8 10^3/uL (4.4-10.8)
[2020-10-07 15:23] LABS: Band Neutrophils % (manual) 0; Basophils % (manual) 0 (0.0-2.0); Blast Cells 0; Metamyelocytes % 0; Myelocytes % 0; Promyelocytes % 0; Reactive Lymphocytes 0
[2020-10-07 15:24] LABS: Bilirubin, Total 0.8 mg/dL (0.2-1.0); Total Protein 6.1 g/dL (6.4-8.2)
[2020-10-07 15:41] LABS: Eosinophils % (manual) 1 (0-7); Lymphocytes % (manual) 78 (10.0-50.0); Monocytes % (manual) 2 (0-12)
[2020-10-07 17:15] VITALS: BP 96/47
== END 2020-10-07 19:16 | disposition home or self-care (01) ==
LOC: ER 13:41 → EDBD 13:41 → ER 19:16
DX: R31.0 Gross hematuria (principal); N40.0 Benign prostatic hyperplasia without lower urinary tract symptoms; I11.0 Hypertensive heart disease with heart failure; I50.9 Heart failure, unspecified; E11.9 Type 2 diabetes mellitus without complications; Z95.0 Presence of cardiac pacemaker; Z79.01 Long term (current) use of anticoagulants; Z79.4 Long term (current) use of insulin; Z79.899 Other long term (current) drug therapy
CPT/HCPCS: 36415; 51702; 80053; 85007; 85027; 85049

== ENCOUNTER → 2020-11-16 | Outpatient (CLI) | payer MEDICARE, BC | END | disposition home or self-care (01) | LOC: Rad HDHVI 14:04 | PROVIDERS: ATTEND Internal Medicine Cardiovascular Disease | DX: E78.5 Hyperlipidemia, unspecified (principal); R06.02 Shortness of breath | CPT/HCPCS: 93306 ==

== ENCOUNTER 2021-03-19 09:57 | Emergency (ER) | payer BC, MEDICARE, OTHER ==
[~2021-03-19] VITALS: Ht 167.6 cm; Wt 59.0 kg
[2021-03-19] MEDS ORDERED: MORPHINE SULFATE INJECTION 2 MG/ML SYRG IV ONE (10:15)
[2021-03-19] MEDS ORDERED: SODIUM CHLORIDE 0.9% 1,000 ML IV ONE (10:15)
[2021-03-19 10:48] LABS: Urine Bacteria FEW /hpf (None Seen); Urine Blood 3+ /uL (Negative); Urine Specific Gravity 1.015 (1.001-1.035); Urine WBC 493 /hpf (0 - 3)
[2021-03-19 10:56] LABS: Basophils # (auto) 0.1 10 ^3/uL (0-0.2); Basophils % (auto) 0.4 % (0.0-2.0); Eosinophils # (auto) 0.2 10 ^3/uL (0-0.8); Eosinophils % (auto) 1.7 % (0.0-7.0); Hematocrit 35.2 % (41.0-53.0); Hemoglobin 11.5 g/dL (13.5-17.5); Mean Corpuscular Hemoglobin 31.9 pg (28.0-32.0); Mean Corpuscular Hgb Conc. 32.6 g/dL (32.0-36.0); Mean Corpuscular Volume 97.8 fL (80.0-100.0); Monocytes # (auto) 0.3 10 ^3/uL (0-1.3); Monocytes % (auto) 2.8 % (0.0-12.0); Neutrophils # (auto) 6.8 10 ^3/uL (1.6-8.6); Neutrophils % (auto) 60.1 % (37.0-80.0); Nucleated Red Blood Cells % 0.9 %; Red Cell Distribution Width 16.1 % (11.8-14.3); White Blood Cell 11.4 10^3/uL (4.4-10.8)
[2021-03-19 11:02] LABS: Albumin 2.9 g/dL (3.4-5.0); Calcium 8.6 mg/dL (8.5-10.1); Magnesium 2.4 mg/dL (1.6-2.6); Potassium 4.5 mmol/L (3.5-5.1)
[2021-03-19 11:05] LABS: BUN/Creatinine Ratio 13.8; Bilirubin, Total 0.8 mg/dL (0.2-1.0)
[2021-03-19] MEDS ORDERED: cefTRIAXone 1GM/50ML D5W 50 ML IV ONE (12:15)
[2021-03-19 12:40] VITALS: BP 171/107
[2021-03-19] MEDS: ONDANSETRON HCL 4 MG/2 ML VIAL IV ONE ×2 (12:40→14:30)
[2021-03-19] MEDS ORDERED: ONDANSETRON ODT 4 MG TAB PO ONE (14:30)
== END 2021-03-19 16:24 | disposition home or self-care (01) ==
LOC: EDBD 09:57 → ER 09:57
DX: N39.0 Urinary tract infection, site not specified (principal); J18.9 Pneumonia, unspecified organism; E11.65 Type 2 diabetes mellitus with hyperglycemia; I11.0 Hypertensive heart disease with heart failure; I50.9 Heart failure, unspecified; E78.5 Hyperlipidemia, unspecified; E44.0 Moderate protein-calorie malnutrition; Z68.21 Body mass index [BMI] 21.0-21.9, adult; Z95.0 Presence of cardiac pacemaker; Z85.9 Personal history of malignant neoplasm, unspecified
CPT/HCPCS: 36415; 51702; 71046; 71250; 80053; 81001; 83690; 83735; 85025; 96361; 96365; 99285; J0696; J7030; Q0162; J2405

== ENCOUNTER → 2021-04-24 | Outpatient (CLI) | payer MEDICARE, OTHER ==
[~2021-04-24] VITALS: Ht 170.2 cm; Wt 63.5 kg
[~2021-04-24] MED LIST changes: +ADENOSINE 53 MG in GIVE UN-DILUTED 0 ML IV ONE; +ADENOSINE 90 MG/30 ML INJ IV ONE
== END | disposition home or self-care (01) ==
LOC: Rad HDHVI 12:50
PROVIDERS: ATTEND Internal Medicine Cardiovascular Disease
DX: Z01.810 Encounter for preprocedural cardiovascular examination (principal); I11.0 Hypertensive heart disease with heart failure; I50.33 Acute on chronic diastolic (congestive) heart failure; E11.9 Type 2 diabetes mellitus without complications; I25.10 Atherosclerotic heart disease of native coronary artery without angina pectoris; R06.02 Shortness of breath; E78.5 Hyperlipidemia, unspecified; Z95.0 Presence of cardiac pacemaker
CPT/HCPCS: 78452; 93005; 96374; 96375; A9500; J0153

== ENCOUNTER → 2021-10-11 | Outpatient (CLI) | payer MEDICARE, OTHER ==
[~2021-10-11] MED LIST changes: -ADENOSINE 53 MG in GIVE UN-DILUTED 0 ML IV ONE; -ADENOSINE 90 MG/30 ML INJ IV ONE; +FUROSEMIDE 100 MG/10ML VIAL IV ONE; +FUROSEMIDE 40 MG/4 ML VIAL ONE; +POTASSIUM CHL 10 Meq TABLET PO ONE; +POTASSIUM CHL 20 Meq TABLET PO ONE
[2021-10-11 13:21] VITALS: BP 145/74
[2021-10-11 14:16] VITALS: BP 155/78
== END | disposition home or self-care (01) ==
LOC: CHF HDHVI 13:31
PROVIDERS: ATTEND Internal Medicine Cardiovascular Disease
DX: I11.0 Hypertensive heart disease with heart failure (principal); I50.32 Chronic diastolic (congestive) heart failure; I25.10 Atherosclerotic heart disease of native coronary artery without angina pectoris; E11.9 Type 2 diabetes mellitus without complications; E78.5 Hyperlipidemia, unspecified; Z95.0 Presence of cardiac pacemaker
CPT/HCPCS: 96374; G0463; J1940

== ENCOUNTER → 2021-10-25 | Outpatient (CLI) | payer MEDICARE, OTHER ==
[~2021-10-25] MED LIST changes: -FUROSEMIDE 100 MG/10ML VIAL IV ONE; -FUROSEMIDE 40 MG/4 ML VIAL ONE; -POTASSIUM CHL 10 Meq TABLET PO ONE; -POTASSIUM CHL 20 Meq TABLET PO ONE
[2021-10-25 16:30] LABS: BUN/Creatinine Ratio 16.8; Calcium 8.8 mg/dL (8.5-10.1); Potassium 3.8 mmol/L (3.5-5.1)
== END | disposition home or self-care (01) ==
LOC: LAB 12:58
PROVIDERS: ATTEND Internal Medicine Cardiovascular Disease
DX: I10 Essential (primary) hypertension (principal)
CPT/HCPCS: 36415; 80048

== ENCOUNTER → 2021-11-01 | Outpatient (CLI) | payer MEDICARE, OTHER ==
[~2021-11-01] MED LIST changes: +CEFTRIAXONE SODIUM 2 GM in D5W 5% 50 ML IV ONE; +GENTAMICIN SULF 80 MG/2 ML VIAL ONE; +GENTAMICIN SULFATE 160 MG in D5W 5% 100 ML IV ONE; +cefTRIAXone 1GM/50ML D5W 100 ML IV ONE; +cefTRIAXone SOD 1,000 MG VL ONE
[2021-11-01 12:10] VITALS: BP 131/68
[2021-11-01 14:39] VITALS: BP 120/55
== END | disposition home or self-care (01) ==
LOC: CHF HDHVI 12:11
PROVIDERS: ATTEND Internal Medicine Cardiovascular Disease
DX: J18.9 Pneumonia, unspecified organism (principal); I11.0 Hypertensive heart disease with heart failure; I50.32 Chronic diastolic (congestive) heart failure; I25.10 Atherosclerotic heart disease of native coronary artery without angina pectoris; E78.5 Hyperlipidemia, unspecified; E11.9 Type 2 diabetes mellitus without complications; Z95.0 Presence of cardiac pacemaker
CPT/HCPCS: 96365; 96367; G0463; J0696; J1580

== ENCOUNTER → 2021-11-15 | Outpatient (CLI) | payer MEDICARE, OTHER ==
[~2021-11-15] MED LIST changes: -CEFTRIAXONE SODIUM 2 GM in D5W 5% 50 ML IV ONE; -GENTAMICIN SULF 80 MG/2 ML VIAL ONE; -GENTAMICIN SULFATE 160 MG in D5W 5% 100 ML IV ONE; +IOHEXOL 350 MG/ML 100ML IJ ONE; -cefTRIAXone 1GM/50ML D5W 100 ML IV ONE; -cefTRIAXone SOD 1,000 MG VL ONE; +levoFLOXacin 500MG 100 ML IV ONE; +methylPREDNISolone SOD SUCC 40 MG/ML VL IV ONE; +methylPREDNISolone SOD SUCC 40 MG/ML VL ONE
[2021-11-15 13:35] VITALS: BP 130/80
[2021-11-15 15:50] VITALS: BP 128/76
== END | disposition home or self-care (01) ==
LOC: Rad HDHVI 13:45
PROVIDERS: ATTEND Internal Medicine Cardiovascular Disease
DX: J18.9 Pneumonia, unspecified organism (principal); R94.4 Abnormal results of kidney function studies; I25.10 Atherosclerotic heart disease of native coronary artery without angina pectoris; I11.0 Hypertensive heart disease with heart failure; I50.32 Chronic diastolic (congestive) heart failure; E78.5 Hyperlipidemia, unspecified; E11.9 Type 2 diabetes mellitus without complications; Z95.0 Presence of cardiac pacemaker
CPT/HCPCS: 36415; 71046; 71260; 82565; 84520; 94640; 96365; 96375; G0463; J1956; J2920; Q9967

== ENCOUNTER → 2021-11-24 | Outpatient (CLI) | payer MEDICARE, OTHER ==
[~2021-11-24] MED LIST changes: -IOHEXOL 350 MG/ML 100ML IJ ONE; +LORA0.5T20 PO; +ZOLP10TA PO; -levoFLOXacin 500MG 100 ML IV ONE; -methylPREDNISolone SOD SUCC 40 MG/ML VL IV ONE; -methylPREDNISolone SOD SUCC 40 MG/ML VL ONE
[2021-11-24 12:03] VITALS: BP 112/69
[2021-11-24 12:20] VITALS: BP 119/60
== END | disposition home or self-care (01) ==
LOC: CHF HDHVI 12:06
PROVIDERS: ATTEND Internal Medicine Cardiovascular Disease
DX: R06.02 Shortness of breath (principal); J93.9 Pneumothorax, unspecified
CPT/HCPCS: 94640; G0463

== ENCOUNTER → 2021-12-06 | Outpatient (CLI) | payer MEDICARE, OTHER ==
[~2021-12-06] MED LIST changes: -LORA0.5T20 PO; -ZOLP10TA PO
== END | disposition home or self-care (01) ==
LOC: Rad HDHVI 12:32
PROVIDERS: ATTEND Internal Medicine Cardiovascular Disease
DX: J18.9 Pneumonia, unspecified organism (principal); R91.8 Other nonspecific abnormal finding of lung field
CPT/HCPCS: 71046

== ENCOUNTER 2021-12-24 01:52 | Inpatient (IN) | payer MEDICARE, OTHER ==
[~2021-12-24] VITALS: Ht 162.6 cm; Wt 69.2 kg
[2021-12-24] MEDS ORDERED: VANCOMYCIN 1GM/250ML 250 ML IV ONE (04:15)
[2021-12-24] MEDS ORDERED: CEFEPIME 1GM/ 50ML 50 ML IV ONE (04:15)
[2021-12-24] MEDS ORDERED: MORPHINE SULFATE INJ 2 MG/ml SYRG IV ONE (04:15)
[2021-12-24] MEDS ORDERED: SODIUM CHLORIDE 0.9% 1,000 ML IV ONE (04:15)
[2021-12-24 05:22] LABS: Basophils # (auto) 0 10 ^3/uL (0-0.2); Basophils % (auto) 0.6 % (0.0-2.0); Eosinophils # (auto) 0 10 ^3/uL (0-0.8); Eosinophils % (auto) 0.1 % (0.0-7.0); Hematocrit 35.9 % (41.0-53.0); Hemoglobin 11.5 g/dL (13.5-17.5); Lymphocytes # (auto) 2.8 10 ^3/uL (0.4-5.4); Lymphocytes % (auto) 35.6 % (10.0-50.0); Mean Corpuscular Hgb Conc. 32.2 g/dL (32.0-36.0); Monocytes # (auto) 0.4 10 ^3/uL (0-1.3); Monocytes % (auto) 5.3 % (0.0-12.0); Neutrophils # (auto) 4.6 10 ^3/uL (1.6-8.6); Neutrophils % (auto) 58.4 % (37.0-80.0); Nucleated Red Blood Cells % 0.8 %; Red Blood Cells 4.12 10^6/uL (4.5-5.90); Red Cell Distribution Width 19.8 % (11.8-14.3); White Blood Cell 7.9 10^3/uL (4.4-10.8)
[2021-12-24 05:24] LABS: Albumin 2.4 g/dL (3.4-5.0); BUN/Creatinine Ratio 10.6; Potassium 3.7 mmol/L (3.5-5.1)
[2021-12-24 05:26] LABS: Bilirubin, Total 0.5 mg/dL (0.2-1.0); Lactic Acid w/Reflex 3.8 mmol/L (0.4-2.0); Total Protein 5.7 g/dL (6.4-8.2)
[2021-12-24] MEDS ORDERED: IOHEXOL 300 MG/ML 100ML BOTTLE IJ ONE (06:00)
[2021-12-24] MEDS ORDERED: PANTOPRAZOLE 80 MG in SODIUM CHL 0.9% 100 ML IV ONE (06:15)
[2021-12-24] MEDS ORDERED: PANTOPRAZOLE 40mg/50ML NS AE 50 ML IV ONE (06:15)
[2021-12-24] MEDS ORDERED: FLEET ENEMA(ADULT) 135 ML PR ONE (07:30)
[2021-12-24] MEDS ORDERED: MILK OF MAGNESIA 30ML SUSP PO ONE ×2 (07:30→15:15)
[2021-12-24] MEDS ORDERED: DOCUSATE SOD 100 MG CAP PO ONE (07:30)
[2021-12-24] MEDS ORDERED: POLYETHYLENE GLYCOL 17 GM PWDR PO ONE (07:30)
[2021-12-24 08:39] LABS: INR 1.87 (0.9-1.15); Partial Thromboplastin Time 32.7 sec (24.6-33.4)
[2021-12-24] MEDS: MORPHINE SULFATE INJ 2 MG/ml SYRG IV PRN ×2 (11:19→20:23)
[2021-12-24] MEDS: ONDANSETRON HCL 4 MG/2 ML VIAL IV PRN ×2 (11:19→20:22)
[2021-12-24] MEDS: SODIUM CHLORIDE 0.9% 1,000 ML IV SCH (11:24)
[2021-12-24] MEDS ORDERED: HYDROmorphone HCL 2 MG/ML VL/or syr IV ONE (14:00)
[2021-12-24] MEDS ORDERED: PREGABALIN CAPSULE 75 MG CAP PO ONE (16:45)
[2021-12-24] MEDS: INSULIN LANTUS (GLARGINE) 1 /0.01ml (100units/ml) SC SCH (22:00)
[2021-12-25] VITALS (8 sets, daily range): BP systolic 92–134; BP diastolic 48–70
[2021-12-25] MEDS ORDERED: ZOLP10TA PO (00:17)
[2021-12-25] MEDS ORDERED: LORA0.5T20 PO (00:17)
[2021-12-25] MEDS: ZOLPIDEM TARTRATE 5 MG TAB PO PRN (00:58)
[2021-12-25] MEDS: carBAMazepine 200 MG TAB PO SCH ×3 (00:59→22:07)
[2021-12-25] MEDS: SODIUM CHLORIDE 0.9% 1,000 ML IV SCH ×2 (03:55→22:13)
[2021-12-25 06:04] LABS: Eosinophils # (auto) 0 10 ^3/uL (0-0.8); Hematocrit 30.9 % (41.0-53.0); White Blood Cell 8.2 10^3/uL (4.4-10.8)
[2021-12-25 06:06] LABS: Basophils # (auto) 0 10 ^3/uL (0-0.2); Basophils % (auto) 0.3 % (0.0-2.0); Eosinophils % (auto) 0.1 % (0.0-7.0); Lymphocytes # (auto) 3.4 10 ^3/uL (0.4-5.4); Lymphocytes % (auto) 42.1 % (10.0-50.0); Mean Corpuscular Hemoglobin 27.9 pg (28.0-32.0); Mean Corpuscular Hgb Conc. 32.3 g/dL (32.0-36.0); Mean Corpuscular Volume 86.4 fL (80.0-100.0); Monocytes # (auto) 0.8 10 ^3/uL (0-1.3); Monocytes % (auto) 9.5 % (0.0-12.0); Neutrophils # (auto) 3.9 10 ^3/uL (1.6-8.6); Nucleated Red Blood Cells % 0.7 %; Red Blood Cells 3.57 10^6/uL (4.5-5.90); Red Cell Distribution Width 19.7 % (11.8-14.3)
[2021-12-25 06:11] LABS: Potassium 3.9 mmol/L (3.5-5.1)
[2021-12-25 06:19] LABS: BUN/Creatinine Ratio 12.8; Bilirubin, Total 0.8 mg/dL (0.2-1.0); Calcium 7.8 mg/dL (8.5-10.1); Total Protein 4.8 g/dL (6.4-8.2)
[2021-12-25] MEDS: MORPHINE SULFATE INJ 2 MG/ml SYRG IV PRN (09:45)
[2021-12-25] MEDS: busPIRone HCL 10 MG TAB PO SCH (09:46)
[2021-12-25] MEDS ORDERED: AZITHROMYCIN 500MG/ 250ML 250 ML IV SCH (10:00)
[2021-12-25] MEDS ORDERED: ENOXAPARIN SOD 40 MG/0.4 ML SYRINGE SC SCH (10:00)
[2021-12-25] MEDS ORDERED: cefTRIAXone 1GM/50ML D5W 50 ML IV SCH (10:00)
[2021-12-25] MEDS ORDERED: PANTOPRAZOLE 40 MG/10 ML VIAL INJ IV ONE (11:30)
[2021-12-25] MEDS: HYDROmorphone HCL 2 MG/ML VL/or syr IV PRN (13:06)
[2021-12-25] MEDS: PIPERACILLIN-TAZOB 3.375GM 100 ML IV SCH ×2 (14:34→22:07)
[2021-12-25 21:49] LABS: Urine Bacteria NONE SEEN /hpf (None Seen); Urine Blood Negative /uL (Negative); Urine Hyaline Cast FEW /lpf (0 - 2); Urine Mucus FEW (None Seen); Urine Specific Gravity 1.021 (1.001-1.035); Urine WBC 1 /hpf (0 - 3)
[2021-12-26] MEDS: INSULIN LANTUS (GLARGINE) 1 /0.01ml (100units/ml) SC SCH ×2 (00:14→22:04)
[2021-12-26] MEDS: ZOLPIDEM TARTRATE 5 MG TAB PO PRN (01:30)
[2021-12-26 05:00] VITALS: BP 110/53
[2021-12-26] MEDS: PIPERACILLIN-TAZOB 3.375GM 100 ML IV SCH ×3 (06:01→21:56)
[2021-12-26] MEDS: HYDROmorphone HCL 2 MG/ML VL/or syr IV PRN ×2 (06:01→21:21)
[2021-12-26 06:02] LABS: Basophils # (auto) 0 10 ^3/uL (0-0.2); Eosinophils # (auto) 0 10 ^3/uL (0-0.8); Hemoglobin 9.1 g/dL (13.5-17.5); Mean Corpuscular Hgb Conc. 32.6 g/dL (32.0-36.0); Neutrophils # (auto) 2.3 10 ^3/uL (1.6-8.6); Red Blood Cells 3.24 10^6/uL (4.5-5.90)
[2021-12-26 06:05] LABS: Basophils % (auto) 0.7 % (0.0-2.0); Eosinophils % (auto) 0.5 % (0.0-7.0); Hematocrit 27.9 % (41.0-53.0); Lymphocytes # (auto) 2.7 10 ^3/uL (0.4-5.4); Lymphocytes % (auto) 46.7 % (10.0-50.0); Mean Corpuscular Hemoglobin 28.2 pg (28.0-32.0); Mean Corpuscular Volume 86.4 fL (80.0-100.0); Monocytes # (auto) 0.8 10 ^3/uL (0-1.3); Monocytes % (auto) 13.1 % (0.0-12.0); Nucleated Red Blood Cells % 1.8 %; White Blood Cell 5.8 10^3/uL (4.4-10.8)
[2021-12-26 06:08] LABS: Potassium 3.4 mmol/L (3.5-5.1)
[2021-12-26 06:16] LABS: Red Cell Distribution Width 20.1 % (11.8-14.3)
[2021-12-26 06:22] LABS: Albumin 1.8 g/dL (3.4-5.0); BUN/Creatinine Ratio 9.3; Bilirubin, Total 0.6 mg/dL (0.2-1.0); Calcium 7.8 mg/dL (8.5-10.1); Total Protein 4.6 g/dL (6.4-8.2)
[2021-12-26 09:00] VITALS: BP 127/61
[2021-12-26] MEDS: COMBIGAN PO SCH ×2 (09:37→22:01)
[2021-12-26] MEDS: OPTH PO SCH ×2 (09:37→22:01)
[2021-12-26] MEDS: PANTOPRAZOLE 40 MG/10 ML VIAL INJ IV SCH (09:37)
[2021-12-26] MEDS: carBAMazepine 200 MG TAB PO SCH ×2 (09:38→21:54)
[2021-12-26] MEDS: busPIRone HCL 10 MG TAB PO SCH (09:38)
[2021-12-26] MEDS ORDERED: POTASSIUM CHL 20 Meq TABLET PO ONE (11:30)
[2021-12-26] MEDS: Ensure HIGH Protein Chocolate 8oz Bottle PO SCH ×2 (12:00→18:00)
[2021-12-26 13:00] VITALS: BP 123/54
[2021-12-26] MEDS: ACETAMINOPHEN 325 MG TAB PO PRN (16:31)
[2021-12-26 17:00] VITALS: BP 126/53
[2021-12-26 22:00] VITALS: BP 113/50
[2021-12-26] MEDS: LATANOPROST 0.005 % OPTH(EYE) SOL 2.5ML OP SCH (22:01)
[2021-12-27] MEDS: ZOLPIDEM TARTRATE 5 MG TAB PO PRN (00:05)
[2021-12-27 05:09] VITALS: BP 145/71
[2021-12-27 06:03] LABS: Basophils # (auto) 0 10 ^3/uL (0-0.2); Eosinophils # (auto) 0 10 ^3/uL (0-0.8)
[2021-12-27 06:10] LABS: Basophils % (auto) 0.8 % (0.0-2.0); Eosinophils % (auto) 0.8 % (0.0-7.0); Hematocrit 30.4 % (41.0-53.0); Hemoglobin 9.6 g/dL (13.5-17.5); Lymphocytes % (auto) 50.7 % (10.0-50.0); Mean Corpuscular Hemoglobin 28.2 pg (28.0-32.0); Mean Corpuscular Hgb Conc. 31.7 g/dL (32.0-36.0); Monocytes # (auto) 0.9 10 ^3/uL (0-1.3); Monocytes % (auto) 15.1 % (0.0-12.0); Neutrophils % (auto) 32.6 % (37.0-80.0); Nucleated Red Blood Cells % 1.8 %; Red Blood Cells 3.41 10^6/uL (4.5-5.90)
[2021-12-27 06:15] LABS: Calcium 7.8 mg/dL (8.5-10.1); Potassium 3.3 mmol/L (3.5-5.1); Red Cell Distribution Width 20.4 % (11.8-14.3)
[2021-12-27 06:16] LABS: BUN/Creatinine Ratio 10.3
[2021-12-27] MEDS: PIPERACILLIN-TAZOB 3.375GM 100 ML IV SCH ×3 (06:47→21:21)
[2021-12-27] MEDS: Ensure HIGH Protein Chocolate 8oz Bottle PO SCH ×3 (08:00→17:57)
[2021-12-27 09:00] VITALS: BP 129/58
[2021-12-27] MEDS: HYDROcodone-ACET 5/325MG TAB PO PRN ×2 (10:02→21:22)
[2021-12-27] MEDS: PANTOPRAZOLE 40 MG/10 ML VIAL INJ IV SCH (10:02)
[2021-12-27] MEDS: busPIRone HCL 10 MG TAB PO SCH (10:03)
[2021-12-27] MEDS: OPTH PO SCH ×2 (10:04→22:00)
[2021-12-27] MEDS: COMBIGAN PO SCH ×2 (10:04→22:00)
[2021-12-27] MEDS: carBAMazepine 200 MG TAB PO SCH ×2 (10:19→21:21)
[2021-12-27] MEDS ORDERED: POTASSIUM EFFERVESENT TAB 25 MEQ PO ONE (11:00)
[2021-12-27] MEDS ORDERED: LOPERAMIDE HCL 2 MG CAP/TAB PO ONE (11:00)
[2021-12-27] MEDS ORDERED: FUROSEMIDE 20 MG/2 ML VIAL IV ONE (11:00)
[2021-12-27] MEDS: HYDROmorphone HCL 2 MG/ML VL/or syr IV PRN (12:58)
[2021-12-27 13:00] VITALS: BP 100/54
[2021-12-27] MEDS: POTASSIUM CHL 20MEQ/100ML 100 ML IV SCH ×2 (16:57→18:50)
[2021-12-27 17:00] VITALS: BP 112/63
[2021-12-27] MEDS: ACETAMINOPHEN 325 MG TAB PO PRN (18:02)
[2021-12-27 21:37] VITALS: BP 94/48
[2021-12-27] MEDS: LATANOPROST 0.005 % OPTH(EYE) SOL 2.5ML OP SCH (22:00)
[2021-12-27] MEDS: INSULIN LANTUS (GLARGINE) 1 /0.01ml (100units/ml) SC SCH (22:00)
[2021-12-28] MEDS: HYDROcodone-ACET 5/325MG TAB PO PRN (04:27)
[2021-12-28 04:47] VITALS: BP 150/75
[2021-12-28 05:58] LABS: Potassium 3.7 mmol/L (3.5-5.1)
[2021-12-28 06:02] LABS: BUN/Creatinine Ratio 9.3; Calcium 8.2 mg/dL (8.5-10.1); Magnesium 2.1 mg/dL (1.6-2.6)
[2021-12-28] MEDS: PIPERACILLIN-TAZOB 3.375GM 100 ML IV SCH (06:08)
[2021-12-28 06:43] VITALS: BP 129/78
[2021-12-28] MEDS: Ensure HIGH Protein Chocolate 8oz Bottle PO SCH ×3 (08:30→18:00)
[2021-12-28 09:00] VITALS: BP 147/77
[2021-12-28] MEDS: carBAMazepine 200 MG TAB PO SCH ×3 (09:41→23:33)
[2021-12-28] MEDS: busPIRone HCL 10 MG TAB PO SCH (09:41)
[2021-12-28] MEDS: FLORASTOR (S. BOULARDII) 250 MG CAP PO SCH (09:41)
[2021-12-28] MEDS: PANTOPRAZOLE 40 MG/10 ML VIAL INJ IV SCH (09:42)
[2021-12-28] MEDS: HYDROmorphone HCL 2 MG/ML VL/or syr IV PRN ×3 (09:43→20:04)
[2021-12-28] MEDS: OPTH PO SCH ×2 (09:46→21:50)
[2021-12-28] MEDS: COMBIGAN PO SCH ×2 (09:46→21:50)
[2021-12-28] MEDS ORDERED: TROLAMINE SALICYLATE 10% TOP CREAM TOP PRN (11:00)
[2021-12-28] MEDS ORDERED: DOCU-94 PO (11:09)
[2021-12-28] MEDS ORDERED: PANT40T PO (11:09)
[2021-12-28] MEDS ORDERED: LEVO500T31 PO (11:09)
[2021-12-28 12:46] VITALS: BP 99/51
[2021-12-28 17:00] VITALS: BP 121/59
[2021-12-28] MEDS: LATANOPROST 0.005 % OPTH(EYE) SOL 2.5ML OP SCH (21:50)
[2021-12-28] MEDS: INSULIN LANTUS (GLARGINE) 1 /0.01ml (100units/ml) SC SCH (21:52)
[2021-12-28 22:09] VITALS: BP 95/59
[2021-12-28] MEDS: ZOLPIDEM TARTRATE 5 MG TAB PO PRN (23:34)
[2021-12-29] MEDS: OXYCODONE W/ ACETAMINOPHEN 5/325MG TABLET PO PRN ×3 (04:39→21:26)
[2021-12-29 04:52] VITALS: BP 127/85
[2021-12-29] MEDS: ACETAMINOPHEN 325 MG TAB PO PRN (05:14)
[2021-12-29] MEDS: Ensure HIGH Protein Chocolate 8oz Bottle PO SCH ×3 (08:00→18:00)
[2021-12-29 08:17] VITALS: BP 157/79
[2021-12-29] MEDS: levoFLOXacin 500 MG TAB PO SCH (09:34)
[2021-12-29] MEDS: PANTOPRAZOLE 40 MG TAB PO SCH (09:35)
[2021-12-29] MEDS: busPIRone HCL 10 MG TAB PO SCH ×3 (09:35→21:20)
[2021-12-29] MEDS: carBAMazepine 200 MG TAB PO SCH ×2 (09:35→21:20)
[2021-12-29] MEDS: FLORASTOR (S. BOULARDII) 250 MG CAP PO SCH (09:35)
[2021-12-29] MEDS: OPTH PO SCH ×2 (09:53→21:46)
[2021-12-29] MEDS: COMBIGAN PO SCH ×2 (09:53→21:46)
[2021-12-29] MEDS ORDERED: LACTULOSE 20Gm/30ML SOLN PO ONE (11:00)
[2021-12-29 12:29] LABS: Hemoglobin 10.5 g/dL (13.5-17.5); Mean Corpuscular Hemoglobin 27.9 pg (28.0-32.0); Mean Corpuscular Volume 89.9 fL (80.0-100.0); Red Blood Cells 3.78 10^6/uL (4.5-5.90); Red Cell Distribution Width 21.2 % (11.8-14.3); White Blood Cell 8.6 10^3/uL (4.4-10.8)
[2021-12-29 12:32] LABS: Calcium 8.1 mg/dL (8.5-10.1); Potassium 3.8 mmol/L (3.5-5.1)
[2021-12-29 12:34] LABS: BUN/Creatinine Ratio 12.2
[2021-12-29 12:38] LABS: Band Neutrophils % (manual) 0; Basophils % (manual) 0 (0.0-2.0); Blast Cells 0; Eosinophils % (manual) 0 (0-7); Promyelocytes % 0
[2021-12-29 13:19] VITALS: BP 115/60
[2021-12-29 13:26] LABS: Lymphocytes % (manual) 40 (10.0-50.0); Metamyelocytes % 4; Monocytes % (manual) 15 (0-12); Myelocytes % 1; Reactive Lymphocytes 6
[2021-12-29 17:00] VITALS: BP 133/66
[2021-12-29] MEDS: LATANOPROST 0.005 % OPTH(EYE) SOL 2.5ML OP SCH (21:46)
[2021-12-29] MEDS: INSULIN LANTUS (GLARGINE) 1 /0.01ml (100units/ml) SC SCH (21:48)
[2021-12-29 22:00] VITALS: BP 130/64
[2021-12-30] VITALS (7 sets, daily range): BP systolic 120–153; BP diastolic 58–78
[2021-12-30] MEDS: ZOLPIDEM TARTRATE 5 MG TAB PO PRN (00:49)
[2021-12-30] MEDS: busPIRone HCL 10 MG TAB PO SCH ×3 (06:16→21:12)
[2021-12-30] MEDS: Ensure HIGH Protein Chocolate 8oz Bottle PO SCH ×3 (08:00→18:00)
[2021-12-30] MEDS: HYDROmorphone HCL 2 MG/ML VL/or syr IV PRN ×3 (09:19→21:13)
[2021-12-30] MEDS: PANTOPRAZOLE 40 MG TAB PO SCH (09:20)
[2021-12-30] MEDS: COMBIGAN PO SCH ×2 (09:20→21:18)
[2021-12-30] MEDS: OPTH PO SCH ×2 (09:20→21:18)
[2021-12-30] MEDS: FLORASTOR (S. BOULARDII) 250 MG CAP PO SCH (09:20)
[2021-12-30] MEDS: levoFLOXacin 500 MG TAB PO SCH (09:20)
[2021-12-30] MEDS: carBAMazepine 200 MG TAB PO SCH ×2 (09:21→21:12)
[2021-12-30] MEDS: SODIUM CHLORIDE 0.9% 1,000 ML IV SCH ×2 (14:00→22:48)
[2021-12-30] MEDS: LATANOPROST 0.005 % OPTH(EYE) SOL 2.5ML OP SCH (21:17)
[2021-12-30] MEDS: INSULIN LANTUS (GLARGINE) 1 /0.01ml (100units/ml) SC SCH (21:18)
[2021-12-30] MEDS: DOCUSATE SOD 100 MG CAP PO PRN (21:27)
[2021-12-31] MEDS: OXYCODONE W/ ACETAMINOPHEN 5/325MG TABLET PO PRN (00:25)
[2021-12-31 04:53] VITALS: BP 152/72
[2021-12-31] MEDS: busPIRone HCL 10 MG TAB PO SCH ×3 (05:05→21:55)
[2021-12-31] MEDS: HYDROmorphone HCL 2 MG/ML VL/or syr IV PRN ×3 (06:07→18:58)
[2021-12-31 08:00] VITALS: BP 129/58
[2021-12-31] MEDS: Ensure HIGH Protein Chocolate 8oz Bottle PO SCH ×3 (08:00→18:00)
[2021-12-31 09:00] VITALS: BP 112/65
[2021-12-31] MEDS: COMBIGAN PO SCH ×2 (10:01→23:14)
[2021-12-31] MEDS: PANTOPRAZOLE 40 MG TAB PO SCH (10:01)
[2021-12-31] MEDS: FLORASTOR (S. BOULARDII) 250 MG CAP PO SCH (10:01)
[2021-12-31] MEDS: levoFLOXacin 500 MG TAB PO SCH (10:01)
[2021-12-31] MEDS: carBAMazepine 200 MG TAB PO SCH ×2 (10:01→21:54)
[2021-12-31] MEDS: OPTH PO SCH ×2 (10:01→23:14)
[2021-12-31] MEDS: DOCUSATE SOD 100 MG CAP PO PRN ×2 (12:24→22:00)
[2021-12-31 13:00] VITALS: BP 112/54
[2021-12-31] MEDS: SODIUM CHLORIDE 0.9% 1,000 ML IV SCH (13:55)
[2021-12-31] MEDS: ONDANSETRON HCL 4 MG/2 ML VIAL IV PRN (15:11)
[2021-12-31 17:00] VITALS: BP 115/63
[2021-12-31 22:00] VITALS: BP 143/62
[2021-12-31] MEDS: LATANOPROST 0.005 % OPTH(EYE) SOL 2.5ML OP SCH (23:13)
[2021-12-31] MEDS: INSULIN LANTUS (GLARGINE) 1 /0.01ml (100units/ml) SC SCH (23:18)
[2022-01-01] MEDS: OXYCODONE W/ ACETAMINOPHEN 5/325MG TABLET PO PRN ×3 (00:05→18:26)
[2022-01-01] MEDS: HYDROmorphone HCL 2 MG/ML VL/or syr IV PRN ×2 (04:13→12:25)
[2022-01-01] MEDS: SODIUM CHLORIDE 0.9% 1,000 ML IV SCH (04:44)
[2022-01-01 05:00] VITALS: BP 129/66
[2022-01-01] MEDS: busPIRone HCL 10 MG TAB PO SCH ×3 (05:37→15:06)
[2022-01-01 09:00] VITALS: BP 138/67
[2022-01-01] MEDS: COMBIGAN PO SCH (10:00)
[2022-01-01] MEDS: OPTH PO SCH (10:00)
[2022-01-01] MEDS: carBAMazepine 200 MG TAB PO SCH (10:55)
[2022-01-01] MEDS: FLORASTOR (S. BOULARDII) 250 MG CAP PO SCH (10:56)
[2022-01-01] MEDS: levoFLOXacin 500 MG TAB PO SCH (10:56)
[2022-01-01] MEDS: PANTOPRAZOLE 40 MG TAB PO SCH (10:56)
[2022-01-01] MEDS: Ensure HIGH Protein Chocolate 8oz Bottle PO SCH ×3 (10:58→18:25)
[2022-01-01] MEDS: ONDANSETRON HCL 4 MG/2 ML VIAL IV PRN (13:02)
[2022-01-01 16:31] VITALS: BP 122/74
[2022-01-01 17:12] VITALS: BP 117/56
== END 2022-01-01 18:25 | disposition hospice, home (50) | DRG 871 ==
LOC: EDBD 01:52 → ER 01:52 → TELE 11:08 → TELE-EAST 23:05 → EAST 12-31 19:58 → TELE-EAST 12-31 20:00
PROVIDERS: ADMIT Internal Medicine; ATTEND Internal Medicine
DX: A41.9 Sepsis, unspecified organism (principal); I21.A1 Myocardial infarction type 2; J96.01 Acute respiratory failure with hypoxia; J69.0 Pneumonitis due to inhalation of food and vomit; E87.2 Acidosis; D68.9 Coagulation defect, unspecified; J44.0 Chronic obstructive pulmonary disease with (acute) lower respiratory infection; C78.00 Secondary malignant neoplasm of unspecified lung; C25.7 Malignant neoplasm of other parts of pancreas; N39.0 Urinary tract infection, site not specified; J44.1 Chronic obstructive pulmonary disease with (acute) exacerbation; Z51.5 Encounter for palliative care; K80.20 Calculus of gallbladder without cholecystitis without obstruction; D50.0 Iron deficiency anemia secondary to blood loss (chronic); D69.6 Thrombocytopenia, unspecified; Z20.822 Contact with and (suspected) exposure to COVID-19; E11.9 Type 2 diabetes mellitus without complications; E78.5 Hyperlipidemia, unspecified; E88.09 Other disorders of plasma-protein metabolism, not elsewhere classified; F32.A Depression, unspecified; F41.9 Anxiety disorder, unspecified; G47.33 Obstructive sleep apnea (adult) (pediatric); G89.4 Chronic pain syndrome; I11.0 Hypertensive heart disease with heart failure; I25.10 Atherosclerotic heart disease of native coronary artery without angina pectoris; I49.5 Sick sinus syndrome; I50.9 Heart failure, unspecified; K59.03 Drug induced constipation; K76.0 Fatty (change of) liver, not elsewhere classified; M54.16 Radiculopathy, lumbar region; N28.1 Cyst of kidney, acquired; T40.605A Adverse effect of unspecified narcotics, initial encounter; Z79.4 Long term (current) use of insulin; Z79.899 Other long term (current) drug therapy; Z82.49 Family history of ischemic heart disease and other diseases of the circulatory system; Z95.0 Presence of cardiac pacemaker
CPT/HCPCS: 36415; 71045; 71260; 74018; 74177; 80048; 80053; 81001; 82270; 82962; 83036; 83605; 83690; 83735; 83880; 84484; 85007; 85025; 85027; 85384; 85610; 85730; 86850; 86900; 86901; 87040; 93005; 96361; 96365; 96375; 99291; C9113; G0378; J0696; J1815; J2405; J2543; J3480